=== PATIENT | female | born 1950 | race African-American/Black ===

== ENCOUNTER 2016-08-04 12:14 | Emergency (ER) | payer MEDICAID ==
[~2016-08-04] VITALS: Ht 162.6 cm; Wt 81.6 kg
[~2016-08-04 12:14] MED LIST: AMLODIPINE BESY10 MG ORAL; AUGMENTIN 875-1 EAC1 ORAL; BENADRYL25 MG ORAL; CITALOPRAM HBR40 M1 ORAL; FLOVENT2 PUFF1 INH; HYDROCHLOROTH12.5 M2 ORAL; HYDROCORTISON28.4 G5 RC; IBUPROFEN600 MG ORAL; LORATADINE10 M1 PO; NORCO 10/3251 EA ORAL; RAMIPRIL5 MG ORAL; SAPHRIS5 MG SL; TAMIFLU75 MG ORAL; VENTOLIN HFA18 GM INH; VITAMIN D31000 UNI1 PO; ZOFRAN4 M1 ORAL; ZYRTEC10 MG ORAL
--- NOTE | 2016-08-04 12:36 | Emergency Room Report ---
History of Present Illness General Chief Complaint: Edema Source: Patient Present Illness HPI Patient present with complaints of bilateral leg swelling over the past 7 days Patient's primary physician is out of town and presents to the ER Patient is on hydrochlorothiazide reports taking the same medications same dosage no change Denies any chest pain or shortness of breath denies any back or flank pain along with the swelling in the feet patient also noticed increased pain She also has a history of gout Denies any fall or trauma Allergies: Coded Allergies: SULFAMETHOXAZOLE (Verified Allergy, Unknown, Rash, 05/10/15) and itchiness on foot TRIMETHOPRIM (Verified Allergy, Unknown, Rash, 05/10/15) and itchiness on foot Patient History Past Medical History: see triage record Pertinent Family History: none Now: No Reviewed Nursing Documentation: PMH: Agreed, PSxH: Agreed Nursing Documentation-PMH Past Medical History: No History, Except For Hx Cardiac Problems: No Hx Hypertension: Yes Hx Asthma: Yes Hx COPD: Yes - and Bronchitis Hx Diabetes: No Hx Cancer: No - Vocal cord polyp(s/p polypectomy in 01/2015) Hx Cerebrovascular Accident: No Review of Systems All Other Systems: negative except mentioned in HPI Physical Exam Vital Signs Date Time Temp Pulse Resp B/P Pulse Ox O2 Delivery O2 Flow Rate FiO2 08/04/16 12:20 98.1 79 20 128/71 98 Room Air Sp02 EP Interpretation: reviewed, normal General Appearance: well appearing, no apparent distress Head: normocephalic, atraumatic Eyes: bilateral eye EOMI, bilateral eye PERRL ENT: hearing grossly normal, normal pharynx, TMs + canals normal, uvula midline Neck: full range of motion, supple, no meningismus, no bony tend Respiratory: lungs clear, normal breath sounds, no rhonchi, no respiratory distress, no retraction, no accessory muscle use Cardiovascular #1: normal peripheral pulses, regular rate, rhythm, no gallop, no JVD, no murmur Gastrointestinal: normal bowel sounds, non tender, soft, no mass, no organomegaly, non-distended, no guarding, no hernia, no pulsatile mass, no rebound Genitourinary: no CVA tenderness Musculoskeletal: normal inspection Neurologic: oriented x3, responsive, bulk sugar handler III-XII nml as tested, motor strength/ tone normal, sensory intact Psychiatric: mood/affect normal Skin: other - 2/4 pitting edema bilatlly Lymphatic: normal inspection, no adenopathy Medical Decision Making Diagnostic Impression: Primary Impression: Edema ER Course Patient is a fairly complex patient with multiple differential to consideration including but not limited to cardiac cardiopulmonary and vascular emergencies Patient's baseline blood work is appropriate No obvious signs of BNP elevation Patient will increase her diuretic over the next several days and follow closely with her primary physician Labs Test 08/04/16 12:40 White Blood Count 5.9 K/UL (4.8-10.8) Red Blood Count 4.25 M/UL (4.20-5.40) Hemoglobin 13.2 G/DL (12.0-16.0) Hematocrit 39.0 % (37.0-47.0) Mean Corpuscular Volume 92 FL (80-99) Mean Corpuscular Hemoglobin 31.1 PG (27.0-31.0) Mean Corpuscular Hemoglobin Concent 33.8 G/DL (32.0-36.0) Red Cell Distribution Width 11.8 % (11.6-14.8) Platelet Count 205 K/UL (150-450) Mean Platelet Volume 7.8 FL (6.5-10.1) Neutrophils (%) (Auto) 57.4 % (45.0-75.0) Lymphocytes (%) (Auto) 30.3 % (20.0-45.0) Monocytes (%) (Auto) 8.6 % (1.0-10.0) Eosinophils (%) (Auto) 2.6 % (0.0-3.0) Basophils (%) (Auto) 1.1 % (0.0-2.0) Sodium Level 142 mEQ/L (135-145) Potassium Level 3.6 mEQ/L (3.4-4.9) Chloride Level 95 mEQ/L (98-107) Carbon Dioxide Level 35 mEQ/L (20-30) Anion Gap 12 (5-15) Blood Urea Nitrogen 13 mg/dL (7-23) Creatinine 0.8 mg/dL (0.5-0.9) Estimat Glomerular Filtration Rate > 60 mL/min (>60) Glucose Level 116 mg/dL (74-106) Calcium Level 9.5 mg/dL (8.6-10.2) Pro-B-Type Natriuretic Peptide 104 pg/mL (0-125) Rhythm Strip Diag. Results EP Interpretation: yes Rate: 77 Rhythm: NSR, no PVC's, no ectopy Last Vital Signs Date Time Temp Pulse Resp B/P Pulse Ox O2 Delivery O2 Flow Rate FiO2 08/04/16 12:20 98.1 79 20 128/71 98 Room Air Status: improved Disposition: HOME, SELF-CARE Condition: Improved Additional Instructions: Patient is provided with the discharge instructions notified to follow up with primary doctor in the next 2-3 days otherwise return to the er with any worsening symptoms. Please note that this report is being documented using Voice Assist technology. This can lead to erroneous entry secondary to incorrect interpretation by the dictating instrument. SVETLANA CRUMP D.O. August 04, 2016 12:36
[2016-08-04 12:45] VITALS: BP 131/75
[2016-08-04 13:08] LABS: BASOPHILS % (AUTO) 1.1 % (0.0-2.0); EOSINOPHILS % (AUTO) 2.6 % (0.0-3.0); LYMPHOCYTES % (AUTO) 30.3 % (20.0-45.0); MEAN CORPUSCULAR HEMOGLOBIN 31.1 PG (27.0-31.0); MEAN CORPUSCULAR HGB CONC 33.8 G/DL (32.0-36.0); MEAN CORPUSCULAR VOLUME 92 FL (80-99); MEAN PLATELET VOLUME 7.8 FL (6.5-10.1); MONOCYTES % (AUTO) 8.6 % (1.0-10.0); NEUTROPHILS % (AUTO) 57.4 % (45.0-75.0); PLATELET COUNT 205 K/UL (150-450); RED BLOOD COUNT 4.25 M/UL (4.20-5.40); RED CELL DISTRIBUTION WIDTH 11.8 % (11.6-14.8); WHITE BLOOD COUNT 5.9 K/UL (4.8-10.8)
[2016-08-04 13:14] VITALS: BP 116/63
[2016-08-04 13:28] LABS: ANION GAP 12 (5-15); CALCIUM 9.5 mg/dL (8.6-10.2); CARBON DIOXIDE 35 mEQ/L (20-30); CHLORIDE 95 mEQ/L (98-107); CREATININE 0.8 mg/dL (0.5-0.9); GLOMERULAR FILTRATION RATE > 60 mL/min (>60); HEMOLYSIS 7; POTASSIUM 3.6 mEQ/L (3.4-4.9); SODIUM 142 mEQ/L (135-145)
[2016-08-04 13:58] VITALS: BP 114/78
== END 2016-08-04 14:01 | disposition home or self-care (01) ==
LOC: EMR 12:45
DX: R60.0 Localized edema (principal); Z88.2 Allergy status to sulfonamides; Z88.8 Allergy status to other drugs, medicaments and biological substances; I10 Essential (primary) hypertension; J45.909 Unspecified asthma, uncomplicated; J44.9 Chronic obstructive pulmonary disease, unspecified
CPT/HCPCS: 36415; 80048; 83880; 85025; 99283

== ENCOUNTER 2017-08-06 11:13 | Emergency (ER) | payer MEDICARE, MEDICAID ==
[~2017-08-06] VITALS: Ht 162.6 cm; Wt 78.0 kg
[2017-08-06 11:34] VITALS: BP 148/92
[2017-08-06] MEDS ORDERED: Morphine Sulfate 4mg/ml Inj IVP ONE (11:45)
[2017-08-06] MEDS ORDERED: Ketorolac 30mg Inj IV ONE (11:45)
[2017-08-06 12:50] LABS: BASOPHILS % (AUTO) 0.9 % (0.0-2.0); EOSINOPHILS % (AUTO) 1.6 % (0.0-3.0); HEMATOCRIT 42.5 % (37.0-47.0); HEMOGLOBIN 13.9 G/DL (12.0-16.0); LYMPHOCYTES % (AUTO) 31.4 % (20.0-45.0); MEAN CORPUSCULAR VOLUME 92 FL (80-99); MONOCYTES % (AUTO) 6.3 % (1.0-10.0); NEUTROPHILS % (AUTO) 59.8 % (45.0-75.0); PLATELET COUNT 213 K/UL (150-450); RED BLOOD COUNT 4.63 M/UL (4.20-5.40); RED CELL DISTRIBUTION WIDTH 11.7 % (11.6-14.8); WHITE BLOOD COUNT 7.5 K/UL (4.8-10.8)
--- NOTE | 2017-08-06 13:14 | Diagnostic Imaging Report ---
Indication: Pain Technique: XRAY Knee 3v LT Comparison: None Findings: There is no evidence of acute fracture or dislocation. There is moderate to severe degenerative change of the knee with joint space narrowing, subchondral sclerosis and tricompartmental osteophyte formation. Within the femoral shaft there is a lesion with chondroid calcifications and some expansion of the overlying cortex. This may represent a chondroma. No radiopaque foreign body seen IMPRESSION: No evidence of acute fracture or dislocation. Moderate to severe degenerative change of the knee. Expansile lesion in the distal fibula measuring approximately 6 cm in length with chondroid calcifications. This may represent an enchondroma versus low grade chondrosarcoma. Size of the lesion, age of the patient and presence of pain would favor chondrosarcoma. Comparison with prior studies, if available, is recommended to assess for interval change. This was discussed with Dr. Salazar
--- NOTE | 2017-08-06 13:18 | Emergency Room Report ---
History of Present Illness General Chief Complaint: General Complaint Source: Patient Present Illness HPI Patient presents with left knee pain. She also swelling there. Been going on for quite a while but the pain is increased recently. She doesn't have any pain medication ordered by her doctors recently. She does not know whether she has gout or not. She denies any recent trauma. Pain is 10/10 at this time radiates somewhat up into the upper leg. She denies any fevers or chills. There's no rash or redness. No chest pain, palpitations, nausea, vomiting, diarrhea, dysuria, abdominal pain , shortness of breath, depression, visual changes, headache. H/O asthma and COPD. Allergies: Coded Allergies: SULFAMETHOXAZOLE (Verified Allergy, Unknown, Rash, 05/10/15) and itchiness on foot TRIMETHOPRIM (Verified Allergy, Unknown, Rash, 05/10/15) and itchiness on foot Patient History Past Medical History: see triage record Social History: Reports: alcohol use; Denies: smoking - former Social History Narrative at home Now: No Reviewed Nursing Documentation: PMH: Agreed; PSxH: Agreed Nursing Documentation-PMH Past Medical History: No History, Except For Hx Cardiac Problems: No Hx Hypertension: Yes Hx Asthma: Yes Hx COPD: Yes - and Bronchitis Hx Diabetes: No Hx Cancer: No - Vocal cord polyp(s/p polypectomy in 01/2015) Hx Cerebrovascular Accident: No Review of Systems All Other Systems: negative except mentioned in HPI Physical Exam Vital Signs Date Time Temp Pulse Resp B/P (MAP) Pulse Ox O2 Delivery O2 Flow Rate FiO2 08/06/17 11:24 98.2 76 17 156/94 96 98.2 Sp02 EP Interpretation: reviewed, normal General Appearance: well appearing, no apparent distress, GCS 15 Head: normocephalic, atraumatic Eyes: bilateral eye normal inspection, bilateral eye PERRL ENT: hearing grossly normal, normal voice, moist mucus membranes Neck: full range of motion, supple Respiratory: normal breath sounds, no respiratory distress, speaking full sentences Cardiovascular #1: regular rate, rhythm Cardiovascular #2: 2+ radial (L), 2+ dorsalis pedis (L) Gastrointestinal: normal inspection, normal bowel sounds, non tender Musculoskeletal: back normal, digits/nails normal, no calf tenderness, swelling - L knee with effusion. Ligaments stable, other - walks with cane Neurologic: alert, oriented x3, motor strength/tone normal, sensory intact, speech normal Psychiatric: mood/affect normal Skin: no rash, other - no erythema or warmth of L knee Medical Decision Making Diagnostic Impression: Primary Impression: Osteoarthritis Qualified Codes: M17.12 - Unilateral primary osteoarthritis, left knee Additional Impression: Osteochondroma ER Course Patient presents with left knee swelling and pain. Differential includes exacerbation of osteotome myelitis, doubt, pseudogout amongst others. She denies any trauma therefore fractures less likely however x-rays are indicated. In addition to that laboratory is needed at this time - mainly, need to exclude gout and renal failure. The patient will treated with Toradol and morphine. She'll also have an Nash wrap placed. Labs with normal WBC and renal function. Uric acid normal. Xrays with severe DJD. Also osteochondroma (vs osteosarcoma per radiologist). Effusion. Nash placed by tech. Position and tension excellent. Distal neurovasc normal as checked by me. Improved with treatment. Ambulates with cane with greater ease. Discussed x-ray findings. Cures checked - percocet 30 filled 4/. Patient stable for outpatient observation and treatment. Laboratory Tests Test 08/06/17 12:10 White Blood Count 7.5 K/UL (4.8-10.8) Red Blood Count 4.63 M/UL (4.20-5.40) Hemoglobin 13.9 G/DL (12.0-16.0) Hematocrit 42.5 % (37.0-47.0) Mean Corpuscular Volume 92 FL (80-99) Mean Corpuscular Hemoglobin 30.0 PG (27.0-31.0) Mean Corpuscular Hemoglobin Concent 32.7 G/DL (32.0-36.0) Red Cell Distribution Width 11.7 % (11.6-14.8) Platelet Count 213 K/UL (150-450) Mean Platelet Volume 8.8 FL (6.5-10.1) Neutrophils (%) (Auto) 59.8 % (45.0-75.0) Lymphocytes (%) (Auto) 31.4 % (20.0-45.0) Monocytes (%) (Auto) 6.3 % (1.0-10.0) Eosinophils (%) (Auto) 1.6 % (0.0-3.0) Basophils (%) (Auto) 0.9 % (0.0-2.0) Erythrocyte Sedimentation Rate 12 MM/HR (0-30) Sodium Level 142 MMOL/L (136-145) Potassium Level 4.0 MMOL/L (3.5-5.1) Chloride Level 103 MMOL/L (98-107) Carbon Dioxide Level 35 MMOL/L (21-32) H Anion Gap 4 mmol/L (5-15) L Blood Urea Nitrogen 18 mg/dL (7-18) Creatinine 0.7 MG/DL (0.55-1.30) Estimate Glomerular Filtration Rate > 60 mL/min (>60) Glucose Level 92 MG/DL (74-106) Uric Acid 6.0 MG/DL (2.6-7.2) Calcium Level 8.7 MG/DL (8.5-10.1) Total Bilirubin 0.4 MG/DL (0.2-1.0) Aspartate Amino Transferase (AST) 19 U/L (15-37) Alanine Aminotransferase (ALT) 31 U/L (12-78) Alkaline Phosphatase 82 U/L (46-116) Total Creatine Kinase 76 U/L (26-308) Total Protein 7.9 G/DL (6.4-8.2) Albumin 4.3 G/DL (3.4-5.0) Globulin 3.6 g/dL Albumin/Globulin Ratio 1.2 (1.0-2.7) Other X-Ray Diagnostic Results Other X-Ray Diagnostic Results : # of Views/Limited Vs Complete: 3 View Indication: Pain EP Interpretation: Yes Interpretation: no dislocation, no fractures, other - djd and ostoechondroma vs osteosarcoma Last Vital Signs Date Time Temp Pulse Resp B/P (MAP) Pulse Ox O2 Delivery O2 Flow Rate FiO2 08/06/17 12:36 98.2 08/06/17 11:34 74 18 148/92 97 Status: improved Disposition: HOME, SELF-CARE Condition: Improved Scripts Ibuprofen* (MOTRIN*) 600 Mg Tablet 600 MG ORAL Q6H PRN for For Pain, #20 TAB Prov: Surendra Salazar M.D. 08/06/17 Hydrocodone Bit/Acetaminophen 5-325* (NORCO 5-325*) 1 Each Tablet 1 TAB ORAL Q6H PRN for For Pain, #16 TAB 0 Refills Prov: Surendra Salazar M.D. 08/06/17 Referrals: NON PHYSICIAN (PCP) Surendra Salazar M.D. August 06, 2017 13:18
[2017-08-06 13:20] LABS: ANION GAP 4 mmol/L (5-15); BLOOD UREA NITROGEN 18 mg/dL (7-18); CALCIUM 8.7 MG/DL (8.5-10.1); CARBON DIOXIDE 35 MMOL/L (21-32); CHLORIDE 103 MMOL/L (98-107); CREATININE 0.7 MG/DL (0.55-1.30); SODIUM 142 MMOL/L (136-145)
[2017-08-06 13:25] LABS: ALANINE AMINOTRANSFERASE 31 U/L (12-78); ALBUMIN 4.3 G/DL (3.4-5.0); ALBUMIN/GLOBULIN RATIO 1.2 (1.0-2.7); ALKALINE PHOSPHATASE 82 U/L (46-116); ASPARTATE AMINO TRANSFERASE 19 U/L (15-37); BILIRUBIN,TOTAL 0.4 MG/DL (0.2-1.0); CREATINE KINASE 76 U/L (26-308)
[2017-08-06] MEDS ORDERED: IBUPROFEN600 MG ORAL (13:56)
[2017-08-06] MEDS ORDERED: NORCO 5-325 TA1 EACH ORAL (13:56)
[2017-08-06] MEDS ORDERED: SAPHRIS5 MG SL (14:01)
[2017-08-06] MEDS ORDERED: OXYCODONE-ACET1 EAC5 ORAL (14:01)
[2017-08-06 14:03] VITALS: BP 145/88
== END 2017-08-06 14:06 | disposition home or self-care (01) ==
LOC: EMR 11:37
DX: M17.12 Unilateral primary osteoarthritis, left knee (principal); D16.9 Benign neoplasm of bone and articular cartilage, unspecified; I10 Essential (primary) hypertension; J45.909 Unspecified asthma, uncomplicated; J44.9 Chronic obstructive pulmonary disease, unspecified; Z88.1 Allergy status to other antibiotic agents; Z88.2 Allergy status to sulfonamides
CPT/HCPCS: 36415; 73562; 80053; 82550; 84550; 85025; 85651; 96374; 96375; 99284; J1885; J2270; J2405

== ENCOUNTER 2017-10-11 10:22 | Emergency (ER) | payer MEDICARE, MEDICAID ==
[~2017-10-11] VITALS: Ht 162.6 cm; Wt 81.6 kg
[~2017-10-11 10:22] MED LIST changes: +NORCO 5-325 TA1 EACH ORAL; +OXYCODONE-ACET1 EAC5 ORAL
[2017-10-11] MEDS ORDERED: oxyCODONE HCL/Acetaminophen 5/325mg ORAL ONE (11:15)
[2017-10-11] MEDS ORDERED: Ketorolac 30mg Inj IV ONE (11:15)
[2017-10-11 11:42] VITALS: BP 144/82
[2017-10-11 12:06] LABS: BASOPHILS % (AUTO) 1.2 % (0.0-2.0); EOSINOPHILS % (AUTO) 1.1 % (0.0-3.0); HEMATOCRIT 41.3 % (37.0-47.0); HEMOGLOBIN 13.7 G/DL (12.0-16.0); LYMPHOCYTES % (AUTO) 37.4 % (20.0-45.0); MEAN CORPUSCULAR VOLUME 91 FL (80-99); MONOCYTES % (AUTO) 7.1 % (1.0-10.0); NEUTROPHILS % (AUTO) 53.3 % (45.0-75.0); PLATELET COUNT 212 K/UL (150-450); RED BLOOD COUNT 4.55 M/UL (4.20-5.40); RED CELL DISTRIBUTION WIDTH 10.9 % (11.6-14.8); WHITE BLOOD COUNT 7.1 K/UL (4.8-10.8)
[2017-10-11 12:06] LABS: APPEARANCE,URINE CLEAR; BILIRUBIN, URINE NEGATIVE (NEGATIVE); COLOR,URINE PALE YELLOW; GLUCOSE, URINE (UA) NEGATIVE (NEGATIVE); KETONES,URINE NEGATIVE (NEGATIVE); LEUKOCYTE ESTERASE ,URINE NEGATIVE (NEGATIVE); NITRITE,URINE NEGATIVE (NEGATIVE); PH,URINE 7 (4.5-8.0); PROTEIN,URINE NEGATIVE (NEGATIVE); UROBILINOGEN,URINE NORMAL MG/DL (0.0-1.0)
[2017-10-11 12:21] LABS: ANION GAP 7 mmol/L (5-15); BLOOD UREA NITROGEN 18 mg/dL (7-18); CALCIUM 8.8 MG/DL (8.5-10.1); CARBON DIOXIDE 32 MMOL/L (21-32); CHLORIDE 101 MMOL/L (98-107); CREATININE 0.7 MG/DL (0.55-1.30); POTASSIUM 3.6 MMOL/L (3.5-5.1); SODIUM 140 MMOL/L (136-145)
[2017-10-11 12:23] LABS: ALANINE AMINOTRANSFERASE 33 U/L (12-78); ALBUMIN/GLOBULIN RATIO 1.2 (1.0-2.7); ALKALINE PHOSPHATASE 89 U/L (46-116); ASPARTATE AMINO TRANSFERASE 17 U/L (15-37); BILIRUBIN,TOTAL 0.3 MG/DL (0.2-1.0)
--- NOTE | 2017-10-11 13:31 | Emergency Room Report ---
History of Present Illness General Chief Complaint: Lower Extremity Injury Source: Patient Present Illness HPI Patient presents with increased pain in L knee. Chronic problem which has worsened. Now out of [place] and "dropped" by prior chronic pain MD. Appointment 10/25 with new pain specialist. Denies fever. There is swelling. No rash. Also has some lower back pain. No dysuria. Pain in knee rated 10/10 , worse with ambulation and movement. No recent trauma. Prior Xray of knee: No evidence of acute fracture or dislocation. Moderate to severe degenerative change of the knee. Expansile lesion in the distal fibula measuring approximately 6 cm in length with chondroid calcifications. This may represent an enchondroma versus low grade chondrosarcoma. Size of the lesion, age of the patient and presence of pain would favor chondrosarcoma. Comparison with prior studies, if available, is recommended to assess for interval change. Anxious. No NVD, chest pain, cough, dyspnea. Allergies: Coded Allergies: SULFAMETHOXAZOLE (Verified Allergy, Unknown, Rash, 05/10/15) and itchiness on foot TRIMETHOPRIM (Verified Allergy, Unknown, Rash, 05/10/15) and itchiness on foot Patient History Past Medical History: see triage record Social History: Reports: smoking Social History Narrative ambulatory Last Menstrual Period: NA Reviewed Nursing Documentation: PMH: Agreed; PSxH: Agreed Nursing Documentation-PMH Past Medical History: No History, Except For Hx Cardiac Problems: No Hx Hypertension: Yes - Degenerative arthritis Hx Asthma: Yes Hx COPD: Yes - and Bronchitis Hx Diabetes: No Hx Cancer: No - Vocal cord polyp(s/p polypectomy in 01/2015) Hx Cerebrovascular Accident: No Review of Systems All Other Systems: negative except mentioned in HPI Physical Exam Vital Signs Date Time Temp Pulse Resp B/P (MAP) Pulse Ox O2 Delivery O2 Flow Rate FiO2 10/11/17 10:25 98.5 68 20 153/91 96 Room Air 98.4 General Appearance: well appearing, no apparent distress Head: normocephalic, atraumatic Eyes: bilateral eye normal inspection, bilateral eye PERRL ENT: hearing grossly normal, normal voice Neck: full range of motion, supple Respiratory: no respiratory distress, speaking full sentences Cardiovascular #1: normal peripheral pulses, regular rate, rhythm Cardiovascular #2: 2+ radial (L), 2+ dorsalis pedis (L) Gastrointestinal: normal inspection, normal bowel sounds, non tender Musculoskeletal: back normal - with min muscle tenderness, digits/nails normal , no calf tenderness, swelling - L knee without effusion, ligaments stable Neurologic: alert, oriented x3, normal gait, grossly normal Psychiatric: mood/affect normal Skin: no rash Medical Decision Making Diagnostic Impression: Primary Impression: Osteoarthritis Qualified Codes: M17.12 - Unilateral primary osteoarthritis, left knee Additional Impressions: Chronic pain Qualified Codes: G89.29 - Other chronic pain Osteochondroma ER Course Patient presents with L knee pain worsened without trauma. DDx; gout, osteoarthritis, opiate dependence, septic joint, pseudogout amongst others. No evidence of PE. Evaluation with labs. Prior x-rays reviewed. Patient treated for pain. Labs with normal WBC, CMP and uric acid. ESR normal. Patient improved. Pressure to cover with analgesics until 10/25. I advised PT and consideration for knee replacement. Discussed prior x-ray results and again stressed follow up. Patient stable for outpatient observation and treatment. Laboratory Tests Test 10/11/17 11:33 10/11/17 11:42 Urine Color Pale yellow Urine Appearance Clear Urine pH 7 (4.5-8.0) Urine Specific [place] 1.010 (1.005-1.035) Urine Protein Negative (NEGATIVE) Urine Glucose (UA) Negative (NEGATIVE) Urine Ketones Negative (NEGATIVE) Urine Occult Blood Negative (NEGATIVE) Urine Nitrite Negative (NEGATIVE) Urine Bilirubin Negative (NEGATIVE) Urine Urobilinogen Normal MG/DL (0.0-1.0) Urine Leukocyte Esterase Negative (NEGATIVE) White Blood Count 7.1 K/UL (4.8-10.8) Red Blood Count 4.55 M/UL (4.20-5.40) Hemoglobin 13.7 G/DL (12.0-16.0) Hematocrit 41.3 % (37.0-47.0) Mean Corpuscular Volume 91 FL (80-99) Mean Corpuscular Hemoglobin 30.0 PG (27.0-31.0) Mean Corpuscular Hemoglobin Concent 33.1 G/DL (32.0-36.0) Red Cell Distribution Width 10.9 % (11.6-14.8) L Platelet Count 212 K/UL (150-450) Mean Platelet Volume 8.4 FL (6.5-10.1) Neutrophils (%) (Auto) 53.3 % (45.0-75.0) Lymphocytes (%) (Auto) 37.4 % (20.0-45.0) Monocytes (%) (Auto) 7.1 % (1.0-10.0) Eosinophils (%) (Auto) 1.1 % (0.0-3.0) Basophils (%) (Auto) 1.2 % (0.0-2.0) Erythrocyte Sedimentation Rate 14 MM/HR (0-30) Sodium Level 140 MMOL/L (136-145) Potassium Level 3.6 MMOL/L (3.5-5.1) Chloride Level 101 MMOL/L (98-107) Carbon Dioxide Level 32 MMOL/L (21-32) Anion Gap 7 mmol/L (5-15) Blood Urea Nitrogen 18 mg/dL (7-18) Creatinine 0.7 MG/DL (0.55-1.30) Estimate Glomerular Filtration Rate > 60 mL/min (>60) Glucose Level 99 MG/DL (74-106) Uric Acid 5.4 MG/DL (2.6-7.2) Calcium Level 8.8 MG/DL (8.5-10.1) Total Bilirubin 0.3 MG/DL (0.2-1.0) Aspartate Amino Transferase (AST) 17 U/L (15-37) Alanine Aminotransferase (ALT) 33 U/L (12-78) Alkaline Phosphatase 89 U/L (46-116) Total Protein 7.3 G/DL (6.4-8.2) Albumin 4.0 G/DL (3.4-5.0) Globulin 3.3 g/dL Albumin/Globulin Ratio 1.2 (1.0-2.7) Last Vital Signs Date Time Temp Pulse Resp B/P (MAP) Pulse Ox O2 Delivery O2 Flow Rate FiO2 10/11/17 13:52 98.5 88 18 141/89 97 Room Air 98.5 Status: improved Disposition: HOME, SELF-CARE Condition: Improved Scripts Ibuprofen* (MOTRIN*) 600 Mg Tablet 600 MG ORAL Q6H PRN for For Pain, #20 TAB Prov: Surendra Salazar M.D. 10/11/17 Hydrocodone Bit/Acetaminophen 10-325* (NORCO 10-325*) 1 Each Tablet 1 TAB ORAL Q6H PRN for For Pain, #14 TAB 0 Refills PRN PAIN Prov: Surendra Salazar M.D. 10/11/17 Referrals: NOT CHOSEN CECELIA/,REFERRING (PCP) Surendra Salazar M.D. Oct 11, 2017 13:31
[2017-10-11] MEDS ORDERED: IBUPROFEN600 MG ORAL (13:38)
[2017-10-11] MEDS ORDERED: NORCO 10-325 T1 EACH ORAL (13:38)
[2017-10-11 13:51] VITALS: BP 141/89
[2017-10-11 13:52] VITALS: BP 141/89
== END 2017-10-11 13:53 | disposition home or self-care (01) ==
LOC: EMR 10:37
DX: M17.12 Unilateral primary osteoarthritis, left knee (principal); G89.29 Other chronic pain; D16.9 Benign neoplasm of bone and articular cartilage, unspecified; Z88.2 Allergy status to sulfonamides; J44.9 Chronic obstructive pulmonary disease, unspecified; I10 Essential (primary) hypertension
CPT/HCPCS: 36415; 80053; 81003; 84550; 85025; 85651; 96374; 99284; J1885

== ENCOUNTER 2018-05-09 10:28 | Inpatient (IN) | payer MEDICARE, MEDICAID ==
[~2018-05-09] VITALS: Ht 162.6 cm; Wt 86.2 kg
[2018-05-09] VITALS (7 sets, daily range): BP systolic 115–144; BP diastolic 64–98
[~2018-05-09 10:28] MED LIST changes: +NORCO 10-325 T1 EACH ORAL
--- NOTE | 2018-05-09 11:04 | NUR ---
ED Nurse Note: Patient walked in to ER c/o 01/02 Rt lower chest pain which started yesterday. pt aao x 4, skin clean and intact and able to ambulate with stable gait.
[2018-05-09 11:06] LABS: BASOPHILS % (AUTO) 0.8 % (0.0-2.0); EOSINOPHILS % (AUTO) 0.4 % (0.0-3.0); HEMATOCRIT 42.7 % (37.0-47.0); HEMOGLOBIN 14.5 G/DL (12.0-16.0); LYMPHOCYTES % (AUTO) 28.4 % (20.0-45.0); MEAN CORPUSCULAR VOLUME 92 FL (80-99); MONOCYTES % (AUTO) 5.3 % (1.0-10.0); NEUTROPHILS % (AUTO) 65.2 % (45.0-75.0); PLATELET COUNT 253 K/UL (150-450); RED BLOOD COUNT 4.66 M/UL (4.20-5.40); RED CELL DISTRIBUTION WIDTH 11.7 % (11.6-14.8); WHITE BLOOD COUNT 10.5 K/UL (4.8-10.8)
[2018-05-09 11:19] LABS: ANION GAP 12 mmol/L (5-15); BLOOD UREA NITROGEN 14 mg/dL (7-18); CALCIUM 8.6 MG/DL (8.5-10.1); CARBON DIOXIDE 28 MMOL/L (21-32); CHLORIDE 99 MMOL/L (98-107); CREATININE 0.7 MG/DL (0.55-1.30); POTASSIUM 3.4 MMOL/L (3.5-5.1); SODIUM 139 MMOL/L (136-145)
[2018-05-09 11:29] LABS: ALANINE AMINOTRANSFERASE 36 U/L (12-78); ALBUMIN 4.3 G/DL (3.4-5.0); ALBUMIN/GLOBULIN RATIO 1.2 (1.0-2.7); ALKALINE PHOSPHATASE 93 U/L (46-116); ASPARTATE AMINO TRANSFERASE 22 U/L (15-37); BILIRUBIN,TOTAL 0.5 MG/DL (0.2-1.0)
[2018-05-09] MEDS: Nitroglycerin Subl 0.4mg tab SL PRN ×3 (11:42→12:55)
--- NOTE | 2018-05-09 11:50 | Emergency Room Report ---
History of Present Illness General Chief Complaint: General Complaint Source: Patient, Medical Record Present Illness HPI 68-year-old female with a history of hypertion, CHF, family history of mom with CAD presents with right-sided inframammary anterior chest pain, nonradiating, moderate to severe, sharp, worse with deep breathing, thinks she may have had a problem after she went to [email or web address] class but can't recall an injury. Denies hemoptysis, fever, vomiting, hemoptysis, abdominal pain, any other symptoms. Allergies: Coded Allergies: SULFAMETHOXAZOLE (Verified Allergy, Unknown, Rash, 05/10/15) and itchiness on foot TRIMETHOPRIM (Verified Allergy, Unknown, Rash, 05/10/15) and itchiness on foot Patient History Past Medical History: see triage record Reviewed Nursing Documentation: PMH: Agreed; PSxH: Agreed Nursing Documentation-PMH Past Medical History: No History, Except For Hx Cardiac Problems: No Hx Hypertension: Yes - Degenerative arthritis Hx Asthma: Yes Hx COPD: Yes - Bronchitis Hx Diabetes: No Hx Cancer: No - Vocal cord polyp(s/p polypectomy in 01/2015) Hx Cerebrovascular Accident: No Review of Systems All Other Systems: negative except mentioned in HPI Physical Exam Vital Signs Date Time Temp Pulse Resp B/P (MAP) Pulse Ox O2 Delivery O2 Flow Rate FiO2 05/09/18 10:37 98.4 82 16 136/90 95 Room Air Sp02 EP Interpretation: reviewed, normal General Appearance: no apparent distress, alert, non-toxic Head: normocephalic Eyes: bilateral eye normal inspection, bilateral eye PERRL, bilateral eye EOMI ENT: normal ENT inspection, hearing grossly normal, normal pharynx, no angioedema, normal voice, moist mucus membranes Neck: normal inspection, full range of motion, supple, supple/symm/no masses Respiratory: chest non-tender, lungs clear, normal breath sounds, chest symmetrical, palpation of chest normal Cardiovascular #1: normal peripheral pulses, regular rate, rhythm, no rub, edema - 1+B/L LE Cardiovascular #2: 2+ radial (R), 2+ radial (L), 2+ dorsalis pedis (R), 2+ dorsalis pedis (L) Gastrointestinal: normal inspection, non tender, soft, no mass, no guarding, no rebound Rectal: deferred Genitourinary: normal inspection, no CVA tenderness Musculoskeletal: back normal, gait/station normal, normal range of motion, non- tender, no calf tenderness, Warren's Sign negative Neurologic: alert, responsive, client relations specialist III-XII nml as tested, motor strength/tone normal, sensory intact, speech normal Psychiatric: judgement/insight normal, memory normal, mood/affect normal Skin: normal color, no rash, warm/dry, normal turgor Lymphatic: no adenopathy Medical Decision Making Diagnostic Impression: Primary Impression: Chest pain ER Course patient with atypical chest pain more right sided, but d-dimer negative, and troponin elevated, ekg with no ischemic changes, but diffuse twave flattening. will give asa, ntg, flexeril, admit for r/o ACS. EKG Diagnostic Results EKG Time: 10:50 EP Interpretation: no stemi Rate: normal Rhythm: NSR ST Segments: no acute changes ASA given to the pt in ED: Yes Rhythm Strip Diag. Results Rhythm Strip Time: 11:47 EP Interpretation: yes Rate: 80 Rhythm: NSR, no PVC's, no ectopy Chest X-Ray Diagnostic Results Chest X-Ray Diagnostic Results : Chest X-Ray Ordered: Yes # of Views/Limited/Complete: 1 View Indication: Chest Pain EP Interpretation: Yes Interpretation: no effusion, no pneumothorax, no acute cardiopulmonary disease Impression: No acute disease Electronically Signed by: Gloria Laird MD Last Vital Signs Date Time Temp Pulse Resp B/P (MAP) Pulse Ox O2 Delivery O2 Flow Rate FiO2 05/09/18 11:00 98.4 72 12 144/85 100 Room Air Disposition: ADMITTED INPATIENT Condition: Stable Referrals: NON PHYSICIAN (PCP) GLORIA LARID M.D May 09, 2018 11:50
--- NOTE | 2018-05-09 12:55 | NUR ---
ED Nurse Note: Second dose of Nitroglycerin 0.4mg was given. pt reported pain level 7/10
--- NOTE | 2018-05-09 13:38 | Diagnostic Imaging Report ---
Indication: Chest pain Technique: One view of the chest Comparison: 05/10/2015 Findings: The heart is enlarged. The lungs and pleural spaces are clear. The aorta is tortuous. Upper mediastinum is unremarkable. There are degenerative thoracic spondylosis changes incidentally noted Impression: Negative
[2018-05-09] MEDS ORDERED: LORazepam 1mg tab ORAL ONE (14:15)
--- NOTE | 2018-05-09 15:30 | NUR ---
ED Nurse Note: Patient wishes to go home instead of being admitted as stating "Hospital scares me. I don't want to stay. I can take care of myself at home." made aware.
--- NOTE | 2018-05-09 16:05 | NUR ---
ED Nurse Note: Patient is talking to the patient about risk for leaving when there are evidences of heart damages.
--- NOTE | 2018-05-09 16:07 | NUR ---
ED Nurse Note: Patient agreed with staying after talking to ERMD.
[2018-05-09] MEDS ORDERED: Morphine Sulfate 4mg/ml Inj (IV USE ONLY) IVP ONE (16:15)
[2018-05-09] MEDS ORDERED: LORATADINE10 M2 PO (17:38)
[2018-05-09] MEDS ORDERED: FLOVENT HFA10.6 GM INH (17:38)
[2018-05-09] MEDS ORDERED: VITAMIN D1000 UNI1 ORAL (17:40)
[2018-05-09] MEDS ORDERED: COLCRYS0.6 M1 PO (17:40)
[2018-05-09] MEDS ORDERED: Nitroglycerin Subl 0.4mg tab SL PRN (18:15)
[2018-05-09] MEDS ORDERED: Miralax 17gm pkt ORAL PRN (18:15)
[2018-05-09] MEDS ORDERED: Albuterol/Ipratropium 3ml neb HHN PRN (18:15)
[2018-05-09] MEDS ORDERED: Enalaprilat 2.5mg/2ml Inj IV PRN (18:15)
[2018-05-09] MEDS ORDERED: dilTIAZem HCl 25mg/5ml Inj IV PRN (18:15)
[2018-05-09] MEDS ORDERED: Morphine Sulfate 2mg/ml Inj(IV/IM USE ONLY) IVP PRN (18:15)
--- NOTE | 2018-05-09 19:24 | NUR ---
HAND-OFF: Report given to FRANKIE Goins. We are waiting for room to be available.
--- NOTE | 2018-05-09 19:55 | NUR ---
ED Nurse Note: pt was complaining of 9/10 pain on right lower chest, prn meds given. pt able to tolerate well. will continue to monitor.
--- NOTE | 2018-05-09 20:25 | NUR ---
ED Nurse Note: pt was reassessed for pain and pt stated that the pain lessen to five and she can tolerate it now. will continue to monitor.
--- NOTE | 2018-05-09 21:35 | NUR ---
ED Nurse Note: pt was admitted to hospital. report given to vitaly zhang.
--- NOTE | 2018-05-09 21:50 | NUR ---
NURSE NOTES: Received Pt from ER Briseida/RN. Pt C/o right side of chest pain which Pt states that it may caused by physical exercises and left knee pain 09/02 with left knee has swollen 2 + for 2 weeks. Pt is A/O x 4, Room air, IV at right A/C 20g/HL. Regular diet, full code, Pt is able to ambulating with her own cane, Voiding well , skin intact. Bed at lowest position, call light within reach.
[2018-05-09] MEDS: Heparin 5000 units/ml inj SUBQ SCH (23:11)
[2018-05-09] MEDS: Ketorolac 30mg Inj IV PRN (23:12)
--- NOTE | 2018-05-10 | NUR ---
NURSE NOTES: Pt was sleeping comfortably at this time, no c/o any pain. Will continue to monitor.
--- NOTE | 2018-05-10 06:09 | NUR ---
NURSE NOTES: Pt's monitor worker shows pt has 1st degree AV block. But Pt doesn't have any pain or discomfort at this time, will continue to monitor.
[2018-05-10 06:17] LABS: BASOPHILS % (AUTO) 0.8 % (0.0-2.0); EOSINOPHILS % (AUTO) 2.1 % (0.0-3.0); HEMATOCRIT 38.6 % (37.0-47.0); HEMOGLOBIN 13.1 G/DL (12.0-16.0); MEAN CORPUSCULAR VOLUME 93 FL (80-99); MONOCYTES % (AUTO) 6.3 % (1.0-10.0); NEUTROPHILS % (AUTO) 54.7 % (45.0-75.0); PLATELET COUNT 204 K/UL (150-450); RED BLOOD COUNT 4.15 M/UL (4.20-5.40); RED CELL DISTRIBUTION WIDTH 12.1 % (11.6-14.8); WHITE BLOOD COUNT 6.5 K/UL (4.8-10.8)
[2018-05-10 06:59] LABS: CHOLESTEROL 206 MG/DL (< 200); HDL CHOLESTEROL 78 MG/DL (40-60); TRIGLYCERIDES 139 MG/DL (30-150)
--- NOTE | 2018-05-10 07:25 | NUR ---
HAND-OFF: Report given to Elias/FRANKIE.
--- NOTE | 2018-05-10 07:30 | NUR ---
NURSE NOTES: RECEIVED PATIENT FROM FRANKIE ROSAS.ALERT ORIENTED X 4 WITH 9/10 PAIN ON HER RIGHT LATERAL CHEST.WILL MEDICATE PATIENT.SR 1ST DEGREE ON THE MONITOR.BP 151/92.
[2018-05-10] MEDS: Heparin 5000 units/ml inj SUBQ SCH ×2 (08:22→20:26)
[2018-05-10] MEDS: Ketorolac 30mg Inj IV PRN ×3 (08:25→20:22)
[2018-05-10] MEDS ORDERED: Aspirin Baby 81mg ORAL SCH (09:00)
--- NOTE | 2018-05-10 10:46 | Consultation ---
History of Present Illness General Date patient seen: May 10, 2018 Chief Complaint: General Complaint Present Illness HPI 68-year-old female with a history of hypertension, CHF, presented to ER with CC of chest pain, nonradiating, moderate to severe, sharp, worse with deep breathing, It started after a Pilates class but can't recall an injury. She was increased troponin therefore she is admitted to cardiac unit. Currently she is c/o RUQ abdominal pain. No nausea/ vomiting/ no other GI symptoms. Allergies: Coded Allergies: SULFAMETHOXAZOLE (Verified Allergy, Unknown, Rash, 05/10/15) and itchiness on foot TRIMETHOPRIM (Verified Allergy, Unknown, Rash, 05/10/15) and itchiness on foot Medication History Scheduled Albuterol Sulfate (Ventolin Hfa), 2 PUFFS INH QID, (Reported) Amlodipine Besylate* (Amlodipine Besylate*), 10 MG ORAL DAILY, (Reported) Asenapine Maleate (Saphris), 5 MG SL QHS, (Reported) Cetirizine Hcl* (Zyrtec*), 10 MG ORAL DAILY Cholecalciferol (Vitamin D3)* (Vitamin D*), 1,000 UNITS ORAL TWICE A DAY, ( Reported) Citalopram Hydrobromide* (Citalopram Hbr*), 40 MG ORAL QHS, (Reported) Colchicine (Colcrys), 0.6 MG PO DAILY, (Reported) Fluticasone Propionate (Flovent Hfa), 1 PUFF INH BID, (Reported) Hydrochlorothiazide* (Hydrochlorothiazide*), 12.5 MG ORAL DAILY, (Reported) Loratadine (Loratadine), 10 MG PO DAILY, (Reported) Ramipril* (Ramipril*), 5 MG ORAL DAILY, (Reported) Scheduled PRN Oxycodone Hcl/Acetaminophen 10-325* (Oxycodone-Acetaminophen 10-325*), 1 TAB ORAL Q8H PRN for Severe Pain (Pain Scale 7-10), (Reported) Discontinued Medications Amoxicillin/Potassium Clav 875-125* (Augmentin 875-125 Tablet*), 1 TAB ORAL TWICE A DAY Discontinued Reason: Therapy completed Diphenhydramine Hcl* (Benadryl*), 25 MG ORAL Q6H PRN for Itching Discontinued Reason: Therapy completed Hydrocodone Bit/Acetaminophen 10-325* ([employer] 10-325*), 1 TAB ORAL Q6H PRN for For Pain Discontinued Reason: Therapy completed Hydrocodone Bit/Acetaminophen 5-325* ([employer] 5-325*), 1 TAB ORAL Q6H PRN for For Pain Discontinued Reason: Therapy completed Hydrocodone/Acetaminophen (Hydrocodon-Acetaminophn 10-325), 1 TAB ORAL Q8H PRN for For Pain, (Reported) Discontinued Reason: Therapy completed Hydrocortisone 1% cream (Hydrocortisone 1% cream), 28.4 GM RC DAILY Discontinued Reason: Therapy completed Ibuprofen* (Motrin*), 600 MG ORAL Q6H PRN for For Pain Discontinued Reason: Therapy completed Ondansetron (Zofran), 4 MG ORAL Q6H PRN for Nausea & Vomiting Discontinued Reason: Therapy completed Oseltamivir Phosphate (Tamiflu), 75 MG ORAL TWICE A DAY Discontinued Reason: Therapy completed Patient History Healthcare decision maker Resuscitation status Full Code Advanced Directive on File Past Medical/Surgical History Past Medical/Surgical History: (1) Depression (2) HTN (hypertension) Review of Systems All Other Systems: negative except mentioned in HPI Physical Exam General Appearance: WD/WN Lines, tubes and drains: peripheral HEENT: normocephalic, atraumatic Neck: non-tender, normal alignment Respiratory/Chest: chest wall non-tender, lungs clear Breasts: no masses Cardiovascular/Chest: normal peripheral pulses Abdomen: normal bowel sounds, non tender Genitourinary/Rectal: normal genital exam Extremities: normal range of motion Last 24 Hour Vital Signs Date Time Temp Pulse Resp B/P (MAP) Pulse Ox O2 Delivery O2 Flow Rate FiO2 05/10/18 08:55 97.9 05/10/18 08:20 69 153/77 05/10/18 08:00 70 05/10/18 08:00 Room Air 05/10/18 04:00 63 05/10/18 04:00 Room Air 05/10/18 00:00 66 05/09/18 23:49 Room Air 05/09/18 22:21 Room Air 05/09/18 21:50 Room Air 05/09/18 21:50 98.3 67 18 135/98 (110) 95 05/09/18 21:35 97.9 76 20 135/64 96 Room Air 05/09/18 21:13 76 20 135/64 96 Room Air 05/09/18 20:25 97.9 05/09/18 18:43 97.9 69 19 117/66 100 Room Air 05/09/18 17:00 97.9 85 19 134/78 100 Room Air 05/09/18 16:42 97.7 05/09/18 15:00 97.7 88 21 128/78 100 Room Air 05/09/18 13:00 98.4 78 19 115/72 100 Room Air 05/09/18 12:55 138/78 05/09/18 11:58 133/88 05/09/18 11:42 118/80 05/09/18 11:00 98.4 72 12 144/85 100 Room Air 05/09/18 11:00 74 12 Room Air 05/09/18 10:37 98.4 82 16 136/90 95 Room Air Intake and Output 05/09/18 05/10/18 19:00 07:00 Intake Total 0 ml 500 ml Balance 0 ml 500 ml Intake Oral 0 ml 500 ml # Voids 1 6 Laboratory Tests Test 05/09/18 10:50 05/09/18 17:18 05/10/18 04:20 White Blood Count 10.5 K/UL (4.8-10.8) 6.5 K/UL (4.8-10.8) Red Blood Count 4.66 M/UL (4.20-5.40) 4.15 M/UL (4.20-5.40) L Hemoglobin 14.5 G/DL (12.0-16.0) 13.1 G/DL (12.0-16.0) Hematocrit 42.7 % (37.0-47.0) 38.6 % (37.0-47.0) Mean Corpuscular Volume 92 FL (80-99) 93 FL (80-99) Mean Corpuscular Hemoglobin 31.2 PG (27.0-31.0) H 31.6 PG (27.0-31.0) H Mean Corpuscular Hemoglobin Concent 34.1 G/DL (32.0-36.0) 33.9 G/DL (32.0-36.0) Red Cell Distribution Width 11.7 % (11.6-14.8) 12.1 % (11.6-14.8) Platelet Count 253 K/UL (150-450) 204 K/UL (150-450) Mean Platelet Volume 7.5 FL (6.5-10.1) 7.4 FL (6.5-10.1) Neutrophils (%) (Auto) 65.2 % (45.0-75.0) 54.7 % (45.0-75.0) Lymphocytes (%) (Auto) 28.4 % (20.0-45.0) 36.0 % (20.0-45.0) Monocytes (%) (Auto) 5.3 % (1.0-10.0) 6.3 % (1.0-10.0) Eosinophils (%) (Auto) 0.4 % (0.0-3.0) 2.1 % (0.0-3.0) Basophils (%) (Auto) 0.8 % (0.0-2.0) 0.8 % (0.0-2.0) Prothrombin Time 10.8 SEC (9.30-11.50) 10.7 SEC (9.30-11.50) Prothromb Time International Ratio 1.0 (0.9-1.1) 1.0 (0.9-1.1) Activated Partial Thromboplast Time 24 SEC (23-33) 26 SEC (23-33) D-Dimer 0.39 mg/L FEU (0.00-0.49) Sodium Level 139 MMOL/L (136-145) Potassium Level 3.4 MMOL/L (3.5-5.1) L Chloride Level 99 MMOL/L (98-107) Carbon Dioxide Level 28 MMOL/L (21-32) Anion Gap 12 mmol/L (5-15) Blood Urea Nitrogen 14 mg/dL (7-18) Creatinine 0.7 MG/DL (0.55-1.30) Estimat Glomerular Filtration Rate > 60 mL/min (>60) Glucose Level 107 MG/DL (74-106) H Calcium Level 8.6 MG/DL (8.5-10.1) Total Bilirubin 0.5 MG/DL (0.2-1.0) Aspartate Amino Transf (AST/SGOT) 22 U/L (15-37) Alanine Aminotransferase (ALT/SGPT) 36 U/L (12-78) Alkaline Phosphatase 93 U/L (46-116) Troponin I 0.147 ng/mL (0.000-0.056) 0.120 ng/mL (0.000-0.056) 0.146 ng/mL (0.000-0.056) Pro-B-Type Natriuretic Peptide 117 pg/mL (0-125) Total Protein 7.8 G/DL (6.4-8.2) Albumin 4.3 G/DL (3.4-5.0) Globulin 3.5 g/dL Albumin/Globulin Ratio 1.2 (1.0-2.7) C-Reactive Protein, Quantitative < 0.4 mg/dL (0.00-0.90) Triglycerides Level 139 MG/DL (30-150) Cholesterol Level 206 MG/DL (< 200) H LDL Cholesterol 104 mg/dL (<100) H HDL Cholesterol 78 MG/DL (40-60) H Cholesterol/HDL Ratio 2.6 (3.3-4.4) L Thyroid Stimulating Hormone (TSH) 1.051 uiU/mL (0.358-3.740) Height (Feet): 5 Height (Inches): 4.00 Weight (Pounds): 190 Medications Current Medications Medications (Trade) Dose Ordered Sig/[place] Route PRN Reason Start Time Stop Time Status Last Admin Dose Admin Acetaminophen (Tylenol) 650 mg Q4H PRN ORAL FEVER 05/09/18 18:15 06/08/18 18:14 Albuterol/ Ipratropium (Albuterol/ Ipratropium) 3 ml Q4H PRN HHN Shortness of Breath 05/09/18 18:15 05/14/18 18:14 Amlodipine Besylate (Norvasc) 10 mg DAILY ORAL 05/10/18 09:00 06/09/18 08:59 05/10/18 08:20 Aspirin (ASA) 162 mg DAILY ORAL 05/10/18 09:00 06/09/18 08:59 05/10/18 08:20 Diltiazem HCl (Cardizem) 10 mg Q1H PRN IV heart rate more than 120, 05/09/18 18:15 06/08/18 18:14 Enalaprilat (Vasotec) 2.5 mg Q6H PRN IV sbp more than 160 05/09/18 18:15 06/08/18 18:14 Heparin Sodium (Porcine) (Heparin 5000 units/ml) 5,000 units EVERY 12 HOURS SUBQ 05/09/18 21:00 06/08/18 20:59 05/10/18 08:22 Ketorolac Tromethamine (Toradol 30mg) 30 mg Q6H PRN IV moderate pain ( 4-6) 05/09/18 18:15 05/14/18 18:14 05/10/18 08:25 Morphine Sulfate (Morphine Sulfate) 2 mg Q4H PRN IVP severe Pain (Pain Scale 7-10) 05/09/18 18:15 05/16/18 18:14 05/09/18 19:55 Nitroglycerin (Ntg) 0.4 mg Q5M PRN SL Prn Chest Pain 05/09/18 18:15 06/08/18 18:14 Ondansetron HCl (Zofran) 4 mg Q6H PRN IVP Nausea & Vomiting 05/09/18 18:15 06/08/18 18:14 Polyethylene Glycol (Miralax) 17 gm DAILYPRN PRN ORAL Constipation 05/09/18 18:15 06/08/18 18:14 Temazepam (Restoril) 15 mg HSPRN PRN ORAL Insomnia 05/09/18 18:15 05/16/18 18:14 Assessment/Plan Problem List: (1) ACS (acute coronary syndrome) ICD Codes: I24.9 - Acute ischemic heart disease, unspecified SNOMED: 575756540 (2) NSTEMI (non-ST elevated myocardial infarction) ICD Codes: I21.4 - Non-ST elevation (NSTEMI) myocardial infarction SNOMED: 88821623 (3) Costochondritis ICD Codes: M94.0 - Chondrocostal junction syndrome [[place]ze] SNOMED: 85185944 (4) HTN (hypertension) ICD Codes: I10 - Essential (primary) hypertension SNOMED: 22575822 (5) Depression ICD Codes: F32.9 - Major depressive disorder, single episode, unspecified SNOMED: 55864826 Assessment/Plan serial ekg, troponin, echo US of abdomen f/u troponin symptomatic treatment cardiology to see. dvt prophylaxis. Mitchel Mejia MD May 10, 2018 10:46
--- NOTE | 2018-05-10 11:00 | NUR ---
NURSE NOTES: SEEN BY DR LUO ORDERED GALL BLADDER ULTRASOUND.PATIENT MADE AWARE.
[2018-05-10] MEDS ORDERED: Lisinopril 10mg tab ORAL SCH (12:37)
--- NOTE | 2018-05-10 12:37 | NUR ---
NURSE NOTES: BP 155/103 HR 64,RECHECKED 148/[address] AGUIRRE MADE AWARE WITH ORDERS.NOTED AND CARRIED OUT.
[2018-05-10] MEDS ORDERED: Lisinopril 10mg tab ORAL PRN (12:45)
--- NOTE | 2018-05-10 14:28 | Cardiology Report ---
APPROVED REPORT EXAM: Two-dimensional and M-mode echocardiogram with Doppler and color Doppler. INDICATION LV FUNCTION M-Mode DIMENSIONS IVSd0.9 (0.7-1.1cm)Left Atrium (MM)3.1 (1.6-4.0cm) LVDd4.9 (3.5-5.6cm)Aortic Root3.0 (2.0-3.7cm) PWd1.3 (0.7-1.1cm)Aortic Cusp Exc.1.6 (1.5-2.0cm) IVSs1.5 cm LVDs3.1 (2.5-4.0cm) PWs2.1 cm Normal left ventricular chamber size, systolic function and wall motion . Left ventricular ejection fraction estimated to be 55-60%. Mild left ventricular hypertrophy by 2-D. Anterior Echo-free space, may be due to pericardial fat or effusion. Mild right atrial enlargement. Normal left atrial chamber size . Right ventricular chamber sizes is within normal limits. Mild aortic valve sclerosis with normal cusp excursion. Thickened mitral valve leaflets with normal excursion. Mild mitral annulus and aortic root calcification. Pulmonic valve not well visualized. IVC at normal size with physiologic collapse. A color flow and spectral Doppler study was performed and revealed: No aortic regurgitation. Mitral diastolic velocities suggest reduced left ventricular relaxation c/w mild LV diastolic dysfunction (Grade I ) Trace mitral regurgitation. Mild tricuspid regurgitation. Tricuspid systolic velocities suggests peak right ventricular systolic pressure of 25mmHg.
--- NOTE | 2018-05-10 14:47 | NUR ---
NURSE NOTES: GALL BLADDER ULTRASOUND DONE,PATIENT ATE LUNCH
--- NOTE | 2018-05-10 15:15 | Cardiology Report ---
APPROVED REPORT EKG Measurement Heart [id number] Sinus rhythm with premature atrial complexes Nonspecific T wave abnormality Abnormal ECG
--- NOTE | 2018-05-10 15:58 | NUR ---
*-* INSURANCE *-* AVAILABLE CLINICALS HAVE BEEN FAXED TO: [employer] P: [phone] F:[phone] INPT CM:[id number]
--- NOTE | 2018-05-10 16:30 | NUR ---
HAND-OFF: Report given to FRANKIE Issa.
--- NOTE | 2018-05-10 16:32 | Diagnostic Imaging Report ---
Indication: Right upper quadrant abdominal pain Technique: Lauren-scale and duplex images of the upper abdomen were obtained Doppler interrogation of the pancreatic and hepatic vessels Comparison: none Findings: Gallbladder is distended. No stones, wall thickening, nor pericholecystic fluid noted. Sonographic Eden's sign is negative. Common bile duct measures 8 mm in diameter. No intrahepatic biliary ductal dilatation. Liver demonstrates equivocally diffusely increased echogenicity; if real consistent with diffuse hepatocellular disease, most likely fatty change. Portal vein and hepatic veins are patent. Pancreas is unremarkable. Spleen is unremarkable. Left kidney measures 11.1 cm in length. Right kidney measures 10.3 cm length. Both kidneys demonstrate normal echogenicity. There is no hydronephrosis. No focal abnormality . Non-aneurysmal abdominal aorta . Impression: Negative for gallstones Borderline dilated common bile duct. May be age-related, downstream obstruction not completely excludable. Correlate with liver function tests, consider MRCP as clinically indicated Equivocal mild increased hepatic echogenicity, if real could indicate fatty change or other hepatocellular pathology
--- NOTE | 2018-05-10 16:47 | NUR ---
NURSE NOTES: Received patient from FRANKIE Del Real. Patient is alert and oriented x4. On room air and showing no signs and symptoms of pain and/or distress. Family member at bedside. Waiting on bed to transfer to TELE. Will continue plan of care.
--- NOTE | 2018-05-10 18:10 | History & Physical ---
History and Physical History & Physicial Evans Bernardo MD May 10, 2018 18:10
--- NOTE | 2018-05-10 18:37 | Cardiology Progress Note ---
Assessment/Plan Assessment/Plan The patient is seen and examined, full consult note is dictated. Objective Last 24 Hour Vital Signs Date Time Temp Pulse Resp B/P (MAP) Pulse Ox O2 Delivery O2 Flow Rate FiO2 05/10/18 17:00 Room Air 05/10/18 15:17 67 05/10/18 12:49 155/103 05/10/18 12:00 Room Air 05/10/18 12:00 61 05/10/18 08:55 97.9 05/10/18 08:20 69 153/77 05/10/18 08:00 70 05/10/18 08:00 Room Air 05/10/18 04:00 63 05/10/18 04:00 Room Air 05/10/18 00:00 66 05/09/18 23:49 Room Air 05/09/18 22:21 Room Air 05/09/18 21:50 Room Air 05/09/18 21:50 98.3 67 18 135/98 (110) 95 05/09/18 21:35 97.9 76 20 135/64 96 Room Air 05/09/18 21:13 76 20 135/64 96 Room Air 05/09/18 20:25 97.9 05/09/18 18:43 97.9 69 19 117/66 100 Room Air Intake and Output 05/09/18 05/10/18 19:00 07:00 Intake Total 0 ml 500 ml Balance 0 ml 500 ml Intake Oral 0 ml 500 ml # Voids 1 6 Laboratory Tests Test 05/10/18 04:20 White Blood Count 6.5 K/UL (4.8-10.8) Red Blood Count 4.15 M/UL (4.20-5.40) L Hemoglobin 13.1 G/DL (12.0-16.0) Hematocrit 38.6 % (37.0-47.0) Mean Corpuscular Volume 93 FL (80-99) Mean Corpuscular Hemoglobin 31.6 PG (27.0-31.0) H Mean Corpuscular Hemoglobin Concent 33.9 G/DL (32.0-36.0) Red Cell Distribution Width 12.1 % (11.6-14.8) Platelet Count 204 K/UL (150-450) Mean Platelet Volume 7.4 FL (6.5-10.1) Neutrophils (%) (Auto) 54.7 % (45.0-75.0) Lymphocytes (%) (Auto) 36.0 % (20.0-45.0) Monocytes (%) (Auto) 6.3 % (1.0-10.0) Eosinophils (%) (Auto) 2.1 % (0.0-3.0) Basophils (%) (Auto) 0.8 % (0.0-2.0) Prothrombin Time 10.7 SEC (9.30-11.50) Prothromb Time International Ratio 1.0 (0.9-1.1) Activated Partial Thromboplast Time 26 SEC (23-33) Troponin I 0.146 ng/mL (0.000-0.056) C-Reactive Protein, Quantitative < 0.4 mg/dL (0.00-0.90) Triglycerides Level 139 MG/DL (30-150) Cholesterol Level 206 MG/DL (< 200) H LDL Cholesterol 104 mg/dL (<100) H HDL Cholesterol 78 MG/DL (40-60) H Cholesterol/HDL Ratio 2.6 (3.3-4.4) L Thyroid Stimulating Hormone (TSH) 1.051 uiU/mL (0.358-3.740) Elian Chino MD May 10, 2018 18:37
[2018-05-10 20:00] VITALS: BP 123/77
--- NOTE | 2018-05-10 20:45 | Consultation ---
History of Present Illness General Chief Complaint: General Complaint Present Illness Allergies: Coded Allergies: SULFAMETHOXAZOLE (Verified Allergy, Unknown, Rash, 05/10/15) and itchiness on foot TRIMETHOPRIM (Verified Allergy, Unknown, Rash, 05/10/15) and itchiness on foot Medication History Scheduled Albuterol Sulfate (Ventolin Hfa), 2 PUFFS INH QID, (Reported) Amlodipine Besylate* (Amlodipine Besylate*), 10 MG ORAL DAILY, (Reported) Asenapine Maleate (Saphris), 5 MG SL QHS, (Reported) Cetirizine Hcl* (Zyrtec*), 10 MG ORAL DAILY Cholecalciferol (Vitamin D3)* (Vitamin D*), 1,000 UNITS ORAL TWICE A DAY, ( Reported) Citalopram Hydrobromide* (Citalopram Hbr*), 40 MG ORAL QHS, (Reported) Colchicine (Colcrys), 0.6 MG PO DAILY, (Reported) Fluticasone Propionate (Flovent Hfa), 1 PUFF INH BID, (Reported) Hydrochlorothiazide* (Hydrochlorothiazide*), 12.5 MG ORAL DAILY, (Reported) Loratadine (Loratadine), 10 MG PO DAILY, (Reported) Ramipril* (Ramipril*), 5 MG ORAL DAILY, (Reported) Scheduled PRN Oxycodone Hcl/Acetaminophen 10-325* (Oxycodone-Acetaminophen 10-325*), 1 TAB ORAL Q8H PRN for Severe Pain (Pain Scale 7-10), (Reported) Discontinued Medications Amoxicillin/Potassium Clav 875-125* (Augmentin 875-125 Tablet*), 1 TAB ORAL TWICE A DAY Discontinued Reason: Therapy completed Diphenhydramine Hcl* (Benadryl*), 25 MG ORAL Q6H PRN for Itching Discontinued Reason: Therapy completed Hydrocodone Bit/Acetaminophen 10-325* ([place] 10-325*), 1 TAB ORAL Q6H PRN for For Pain Discontinued Reason: Therapy completed Hydrocodone Bit/Acetaminophen 5-325* ([place] 5-325*), 1 TAB ORAL Q6H PRN for For Pain Discontinued Reason: Therapy completed Hydrocodone/Acetaminophen (Hydrocodon-Acetaminophn 10-325), 1 TAB ORAL Q8H PRN for For Pain, (Reported) Discontinued Reason: Therapy completed Hydrocortisone 1% cream (Hydrocortisone 1% cream), 28.4 GM RC DAILY Discontinued Reason: Therapy completed Ibuprofen* (Motrin*), 600 MG ORAL Q6H PRN for For Pain Discontinued Reason: Therapy completed Ondansetron (Zofran), 4 MG ORAL Q6H PRN for Nausea & Vomiting Discontinued Reason: Therapy completed Oseltamivir Phosphate (Tamiflu), 75 MG ORAL TWICE A DAY Discontinued Reason: Therapy completed Patient History Healthcare decision maker Resuscitation status Full Code Advanced Directive on File Physical Exam Last 24 Hour Vital Signs Date Time Temp Pulse Resp B/P (MAP) Pulse Ox O2 Delivery O2 Flow Rate FiO2 05/10/18 20:38 62 18 Room Air 21 05/10/18 20:00 Room Air 05/10/18 20:00 97.9 70 20 123/77 (92) 98 05/10/18 17:00 Room Air 05/10/18 15:17 67 05/10/18 12:49 155/103 05/10/18 12:00 Room Air 05/10/18 12:00 61 05/10/18 08:55 97.9 05/10/18 08:20 69 153/77 05/10/18 08:00 70 05/10/18 08:00 Room Air 05/10/18 04:00 63 05/10/18 04:00 Room Air 05/10/18 00:00 66 05/09/18 23:49 Room Air 05/09/18 22:21 Room Air 05/09/18 21:50 Room Air 05/09/18 21:50 98.3 67 18 135/98 (110) 95 05/09/18 21:35 97.9 76 20 135/64 96 Room Air 05/09/18 21:13 76 20 135/64 96 Room Air Intake and Output 05/09/18 05/10/18 19:00 07:00 Intake Total 0 ml 500 ml Balance 0 ml 500 ml Intake Oral 0 ml 500 ml # Voids 1 6 Laboratory Tests Test 05/10/18 04:20 White Blood Count 6.5 K/UL (4.8-10.8) Red Blood Count 4.15 M/UL (4.20-5.40) L Hemoglobin 13.1 G/DL (12.0-16.0) Hematocrit 38.6 % (37.0-47.0) Mean Corpuscular Volume 93 FL (80-99) Mean Corpuscular Hemoglobin 31.6 PG (27.0-31.0) H Mean Corpuscular Hemoglobin Concent 33.9 G/DL (32.0-36.0) Red Cell Distribution Width 12.1 % (11.6-14.8) Platelet Count 204 K/UL (150-450) Mean Platelet Volume 7.4 FL (6.5-10.1) Neutrophils (%) (Auto) 54.7 % (45.0-75.0) Lymphocytes (%) (Auto) 36.0 % (20.0-45.0) Monocytes (%) (Auto) 6.3 % (1.0-10.0) Eosinophils (%) (Auto) 2.1 % (0.0-3.0) Basophils (%) (Auto) 0.8 % (0.0-2.0) Prothrombin Time 10.7 SEC (9.30-11.50) Prothromb Time International Ratio 1.0 (0.9-1.1) Activated Partial Thromboplast Time 26 SEC (23-33) Troponin I 0.146 ng/mL (0.000-0.056) C-Reactive Protein, Quantitative < 0.4 mg/dL (0.00-0.90) Triglycerides Level 139 MG/DL (30-150) Cholesterol Level 206 MG/DL (< 200) H LDL Cholesterol 104 mg/dL (<100) H HDL Cholesterol 78 MG/DL (40-60) H Cholesterol/HDL Ratio 2.6 (3.3-4.4) L Thyroid Stimulating Hormone (TSH) 1.051 uiU/mL (0.358-3.740) Height (Feet): 5 Height (Inches): 4.00 Weight (Pounds): 190 Medications Current Medications Medications (Trade) Dose Ordered Sig/[place] Route PRN Reason Start Time Stop Time Status Last Admin Dose Admin Acetaminophen (Tylenol) 650 mg Q4H PRN ORAL FEVER 05/09/18 18:15 06/08/18 18:14 Albuterol/ Ipratropium (Albuterol/ Ipratropium) 3 ml Q4H PRN HHN Shortness of Breath 05/09/18 18:15 05/14/18 18:14 Amlodipine Besylate (Norvasc) 10 mg DAILY ORAL 05/10/18 09:00 06/09/18 08:59 05/10/18 08:20 Aspirin (ASA) 162 mg DAILY ORAL 05/10/18 09:00 06/09/18 08:59 05/10/18 08:20 Diltiazem HCl (Cardizem) 10 mg Q1H PRN IV heart rate more than 120, 05/09/18 18:15 06/08/18 18:14 Enalaprilat (Vasotec) 2.5 mg Q6H PRN IV sbp more than 160 05/09/18 18:15 06/08/18 18:14 Heparin Sodium (Porcine) (Heparin 5000 units/ml) 5,000 units EVERY 12 HOURS SUBQ 05/09/18 21:00 06/08/18 20:59 05/10/18 20:26 Ketorolac Tromethamine (Toradol 30mg) 30 mg Q6H PRN IV moderate pain ( 4-6) 05/09/18 18:15 05/14/18 18:14 05/10/18 20:22 Lisinopril (Zestril) 10 mg BIDPRN PRN ORAL For High Blood Pressure 05/10/18 12:45 06/09/18 12:44 Morphine Sulfate (Morphine Sulfate) 2 mg Q4H PRN IVP severe Pain (Pain Scale 7-10) 05/09/18 18:15 05/16/18 18:14 05/09/18 19:55 Nitroglycerin (Ntg) 0.4 mg Q5M PRN SL Prn Chest Pain 05/09/18 18:15 06/08/18 18:14 Ondansetron HCl (Zofran) 4 mg Q6H PRN IVP Nausea & Vomiting 05/09/18 18:15 06/08/18 18:14 Polyethylene Glycol (Miralax) 17 gm DAILYPRN PRN ORAL Constipation 05/09/18 18:15 06/08/18 18:14 Temazepam (Restoril) 15 mg HSPRN PRN ORAL Insomnia 05/09/18 18:15 05/16/18 18:14 05/10/18 20:21 Niharika Denny MD May 10, 2018 20:45
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
--- NOTE | 2018-05-10 23:15 | Consultation ---
DATE OF CONSULTATION: 05/10/2018 CARDIOLOGY CONSULTATION CONSULTING PHYSICIAN: Elian Chino M.D. REFERRING PHYSICIAN: Evans Bernardo M.D. REASON FOR CONSULTATION: Management of uci-KP-vkwetlaox myocardial infarction. HISTORY OF PRESENT ILLNESS: This is a very unfortunate 68-year-old female with history of hypertension, family history of congestive heart failure that occurred in her mom in mid 70s, and history of congestive heart failure, who presents to the hospital with acute onset of shortness of breath with associated pleuritic chest pain, inability to take deep breaths, and couple of days of lower extremity pain around the calf muscles. The patient states that her leg pains went away after couple of days. At the time of my evaluation, she did not have any pleuritic chest pain. At the time of arrival to the hospital, blood pressure was 136/90 and pulse of 82. A 12-lead electrocardiogram was significant for sinus rhythm with frequent atrial premature complexes and nonspecific ST and T-wave abnormalities. The patient's troponin I level was elevated at 0.147 and repeat of 0.12. Therefore, Cardiology consultation was made at the request of Dr. Bernardo for assessment of jmj-JX-xncsyimyr myocardial infarction. PAST MEDICAL HISTORY: 1. Hypertension. 2. History of chronic obstructive pulmonary disease. 3. History of arthritis. 4. History of vocal cord polyps status post polypectomy. PAST SURGICAL HISTORY: Polypectomy of vocal cords. MEDICATIONS: List of medications at home includes amlodipine 10 mg p.o. daily, albuterol 2 puffs inhaler every 6 hours, Saphris 5 mg sublingual at bedtime, Zyrtec 10 mg p.o. daily, vitamin D 1000 units by mouth twice daily, citalopram 40 mg p.o. at bedtime, Colcrys 0.6 mg daily, Flovent 1 puff inhaler twice daily, hydrochlorothiazide 12.5 mg daily, loratadine 10 mg p.o. daily, oxycodone acetaminophen 10/325 one tablet q.8 hours p.r.n. severe pain, and ramipril 5 mg p.o. daily. ALLERGIES: Allergic to sulfamethoxazole and trimethoprim. FAMILY HISTORY: Mother had congestive heart failure in the mid 70s. Did not have any bypass or coronary artery stents. Father had cancer. SOCIAL HISTORY: Smoked tobacco in the past. Denies any alcohol or illicit drug use. REVIEW OF SYSTEMS: HEENT: Denies any headache, diplopia, or blurred vision. CONSTITUTIONAL: Denies any fever, chills, night sweats, or weight loss. CARDIOVASCULAR: Pleuritic chest pain as mentioned above in the right side of the chest with associated shortness of breath. Prior to this event, the patient also had dyspnea on exertion with activities of daily living. Denies any PND, orthopnea, leg swelling, or syncopal event. PULMONARY: Denies any cough, hemoptysis, or wheezing. GASTROINTESTINAL: Denies any nausea, vomiting, diarrhea, constipation, abdominal pain, or GI bleed. GENITOURINARY: Denies any hematuria, dysuria, or incontinence. NEUROLOGY: Denies any motor dysfunction, sensory deficit, or altered speech. PHYSICAL EXAMINATION: VITAL SIGNS: Blood pressure at the time of arrival to the hospital was 136/90, pulse of 82, respirations of 16, O2 saturation 95% on room air, and temperature 98.3 degrees Fahrenheit. GENERAL: The patient is a very pleasant 68-year-old lady in no apparent respiratory distress. Alert and oriented x4. HEENT: Atraumatic and normocephalic. Anicteric. Pupils are equal, round, and reactive to light and accommodation. Extraocular muscles intact. NECK: JVP is just about 7 to 8 cm. No carotid bruits. Carotid upstrokes 2+ bilaterally. CVS: Normal S1, S2. Irregular. No murmurs, gallops, or rubs. PMI is at fourth intercostal space in the midclavicular line. LUNGS: Clear to auscultation bilaterally. ABDOMEN: Soft, nontender, and nondistended. No hepatosplenomegaly. Positive bowel sounds. EXTREMITIES: No evidence of edema, clubbing, or cyanosis. LABORATORY FINDINGS: Sodium is 139, potassium is 3.4, chloride 99, bicarbonate 28, BUN of 14, creatinine 0.7, glucose is 107, calcium is 8.6, troponin I 0.147 and 0.12, and 0.146. ProBNP was 117. Total cholesterol 206. LDL of 104 and HDL of 78. TSH of 1.05. INR is 1.0. A 12-lead electrocardiogram, sinus rhythm at 79 with left axis deviation, frequent single ventricular premature complexes, and nonspecific ST and T-wave abnormalities. Chest x-ray showed cardiomegaly with no pulmonary edema. A 2D echocardiography revealed normal LV systolic function and normal wall motion, LVEF of 55% to 60%, mild left ventricular hypertrophy, mild right atrial enlargement, and grade 1 LV diastolic dysfunction. Her right ventricular systolic pressure measured at 25 mmHg consistent with normal pulmonary artery pressure. ASSESSMENT AND PLAN: The patient is a very unfortunate 68-year-old lady, who is seen in Cardiology consultation. 1. Right-sided chest pain is unlikely to be consistent with acute coronary syndrome based on the characteristics of the pain. However, the troponin I level is slightly elevated. The patient may have demand ischemia or type 2 xdp-TR-wklhqruwg myocardial infarction. A 12-lead electrocardiogram does not show any acute ischemic features. I discussed with the patient regarding obtaining a noninvasive stress test and possibly tests, which can be done in the outpatient setting. The patient can follow up with Dr. Bernardo as an outpatient and an arrangement for cardiac stress test can be done in the office setting. The patient has coronary artery disease risk factors including hypertension, hypercholesterolemia, and age as well as history of tobacco use. A 2D echocardiography does not show any wall motion abnormalities. 2. Pleuritic chest pain. Of note, the pulmonary embolism is ruled out with negative D-dimer. 3. History of hypertension. I would agree with continuation of amlodipine and lisinopril. 4. History of chronic obstructive pulmonary disease. I would like to thank, Dr. Bernardo, for allowing me to participate in the care of this patient. Elian Chino M.D. DR: JACKELYN JOB#: [id number] CC:
[2018-05-11] VITALS: BP 138/77
[2018-05-11 04:00] VITALS: BP 132/80
--- NOTE | 2018-05-11 06:10 | NUR ---
NURSE NOTES: Transferred patient to TELE 210-2. Report given to FRANKIE Wolfe. Belongings accounted for by bedside, patient is stable.
[2018-05-11] MEDS ORDERED: Nitroglycerin Subl 0.4mg tab SL PRN (06:30)
--- NOTE | 2018-05-11 06:30 | NUR ---
NURSE NOTES:Rerceived from ADAMA . Report received from previous nurse. Assume care. Received awake and alert resp even and unlabored. No acute distress noted. Connect to monitor with sinus rhythm noted.
[2018-05-11] MEDS ORDERED: dilTIAZem HCl 25mg/5ml Inj IV PRN (07:00)
[2018-05-11] MEDS ORDERED: Morphine Sulfate 2mg/ml Inj(IV/IM USE ONLY) IVP PRN (07:00)
[2018-05-11] MEDS ORDERED: Albuterol/Ipratropium 3ml neb HHN PRN (07:00)
[2018-05-11] MEDS ORDERED: Miralax 17gm pkt ORAL PRN (07:00)
[2018-05-11] MEDS ORDERED: Lisinopril 10mg tab ORAL PRN (07:00)
[2018-05-11] MEDS ORDERED: Ketorolac 30mg Inj IV PRN (07:00)
[2018-05-11] MEDS ORDERED: Enalaprilat 2.5mg/2ml Inj IV PRN (07:00)
--- NOTE | 2018-05-11 07:17 | NUR ---
NURSE NOTES: Report given to on coming RN
--- NOTE | 2018-05-11 07:40 | NUR ---
NURSE NOTES: Received pt. and report from FRANKIE Wolfe. Patient is sitting at the edge of bed, eating breakfast. Alert and oriented x4. alarm security or surveillance monitor is in placed. Call light and bed side table within reach, Call light on. Bed is in the lowest position with two side rails up and locked. No acute distress noted at this time. Will continue to monitor and follow plan of care. Addendum: 05/11/18 at 0757 by TIFFANI LEUNG RN RN NURSE NOTES: Report received by FRANKIE Hoyt.
[2018-05-11 08:00] VITALS: BP 137/69
[2018-05-11] MEDS ORDERED: Heparin 5000 units/ml inj SUBQ SCH (09:00)
[2018-05-11] MEDS ORDERED: Aspirin Baby 81mg ORAL SCH (09:00)
--- NOTE | 2018-05-11 09:22 | Pulmonology Progress Note ---
Assessment/Plan Problems: (1) ACS (acute coronary syndrome) (2) NSTEMI (non-ST elevated myocardial infarction) (3) Costochondritis (4) HTN (hypertension) (5) Depression Assessment/Plan Echo reviewed cardiac note reviewed symptomatic treatment dc home with f/u with primary for stress testing Subjective ROS Limited/Unobtainable: No Constitutional: Reports: no symptoms HEENT: Repors: no symptoms Respiratory: Reports: no symptoms Cardiovascular: Reports: no symptoms Gastrointestinal/Abdominal: Reports: no symptoms Allergies: Coded Allergies: SULFAMETHOXAZOLE (Verified Allergy, Unknown, Rash, 05/10/15) and itchiness on foot TRIMETHOPRIM (Verified Allergy, Unknown, Rash, 05/10/15) and itchiness on foot Objective Last 24 Hour Vital Signs Date Time Temp Pulse Resp B/P (MAP) Pulse Ox O2 Delivery O2 Flow Rate FiO2 05/11/18 08:51 66 18 Room Air 21 05/11/18 08:41 79 137/69 05/11/18 08:00 Room Air 05/11/18 08:00 96.9 79 20 137/69 (91) 98 05/11/18 04:00 Room Air 05/11/18 04:00 97.3 63 20 132/80 (97) 97 05/11/18 03:42 58 05/11/18 00:00 97.7 65 20 138/77 (97) 99 05/11/18 00:00 Room Air 05/10/18 23:30 66 05/10/18 20:38 62 18 Room Air 21 05/10/18 20:00 Room Air 05/10/18 20:00 97.9 70 20 123/77 (92) 98 05/10/18 19:03 66 05/10/18 17:00 Room Air 05/10/18 15:17 67 05/10/18 12:49 155/103 05/10/18 12:00 Room Air 05/10/18 12:00 61 Intake and Output 05/10/18 05/11/18 19:00 07:00 Intake Total 700 ml Balance 700 ml Intake Oral 700 ml # Voids 2 3 # Bowel Movements 2 General Appearance: WD/WN HEENT: normocephalic, atraumatic Respiratory/Chest: chest wall non-tender, lungs clear Cardiovascular: normal peripheral pulses, normal rate Abdomen: normal bowel sounds, soft, non tender Genitourinary: normal external genitalia Skin: no rash Neurologic/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-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 grossly normal Current Medications Medications (Trade) Dose Ordered Sig/[place] Route PRN Reason Start Time Stop Time Status Last Admin Dose Admin Acetaminophen (Tylenol) 650 mg Q4H PRN ORAL FEVER 05/11/18 07:00 06/08/18 06:59 Albuterol/ Ipratropium (Albuterol/ Ipratropium) 3 ml Q4H PRN HHN Shortness of Breath 05/11/18 07:00 05/14/18 06:59 Amlodipine Besylate (Norvasc) 10 mg DAILY ORAL 05/11/18 09:00 06/09/18 08:59 05/11/18 08:41 Aspirin (ASA) 162 mg DAILY ORAL 05/11/18 09:00 06/09/18 08:59 05/11/18 08:41 Diltiazem HCl (Cardizem) 10 mg Q1H PRN IV heart rate more than 120, 05/11/18 07:00 06/08/18 06:59 Enalaprilat (Vasotec) 2.5 mg Q6H PRN IV sbp more than 160 05/11/18 07:00 06/08/18 06:59 Heparin Sodium (Porcine) (Heparin 5000 units/ml) 5,000 units EVERY 12 HOURS SUBQ 05/11/18 09:00 06/08/18 20:59 05/11/18 08:43 Ketorolac Tromethamine (Toradol 30mg) 30 mg Q6H PRN IV moderate pain ( 4-6) 05/11/18 07:00 05/16/18 06:59 05/11/18 08:42 Lisinopril (Zestril) 10 mg BIDPRN PRN ORAL For High Blood Pressure 05/11/18 07:00 06/09/18 06:59 Morphine Sulfate (Morphine Sulfate) 2 mg Q4H PRN IVP severe Pain (Pain Scale 7-10) 05/11/18 07:00 05/16/18 06:59 Nitroglycerin (Ntg) 0.4 mg Q5M PRN SL Prn Chest Pain 05/11/18 06:30 06/08/18 18:14 Ondansetron HCl (Zofran) 4 mg Q6H PRN IVP Nausea & Vomiting 05/11/18 07:00 06/08/18 06:59 Polyethylene Glycol (Miralax) 17 gm DAILYPRN PRN ORAL Constipation 05/11/18 07:00 06/08/18 06:59 Temazepam (Restoril) 15 mg HSPRN PRN ORAL Insomnia 05/11/18 20:00 05/16/18 19:59 Mitchel Mejia MD May 11, 2018 09:21
[2018-05-11] MEDS ORDERED: ASPIRIN81 MG ORAL (09:24)
[2018-05-11] MEDS ORDERED: NORVASC10 MG ORAL (09:24)
[2018-05-11 09:34] LABS: BASOPHILS % (AUTO) 0.8 % (0.0-2.0); EOSINOPHILS % (AUTO) 1.3 % (0.0-3.0); HEMATOCRIT 41.9 % (37.0-47.0); HEMOGLOBIN 14.2 G/DL (12.0-16.0); LYMPHOCYTES % (AUTO) 25.7 % (20.0-45.0); MEAN CORPUSCULAR VOLUME 93 FL (80-99); MONOCYTES % (AUTO) 5.6 % (1.0-10.0); NEUTROPHILS % (AUTO) 66.7 % (45.0-75.0); PLATELET COUNT 229 K/UL (150-450); RED BLOOD COUNT 4.53 M/UL (4.20-5.40); RED CELL DISTRIBUTION WIDTH 11.8 % (11.6-14.8); WHITE BLOOD COUNT 6.6 K/UL (4.8-10.8)
[2018-05-11 10:41] LABS: ALANINE AMINOTRANSFERASE 35 U/L (12-78); ALBUMIN 4.1 G/DL (3.4-5.0); ALBUMIN/GLOBULIN RATIO 1.2 (1.0-2.7); ALKALINE PHOSPHATASE 72 U/L (46-116); ANION GAP 9 mmol/L (5-15); ASPARTATE AMINO TRANSFERASE 31 U/L (15-37); BILIRUBIN,TOTAL 0.7 MG/DL (0.2-1.0); BLOOD UREA NITROGEN 13 mg/dL (7-18); CALCIUM 8.7 MG/DL (8.5-10.1); CARBON DIOXIDE 32 MMOL/L (21-32); CHLORIDE 102 MMOL/L (98-107); CREATININE 0.7 MG/DL (0.55-1.30); PHOSPHORUS 3.9 MG/DL (2.5-4.9); POTASSIUM 3.3 MMOL/L (3.5-5.1); SODIUM 143 MMOL/L (136-145)
[2018-05-11 12:00] VITALS: BP 130/89
[2018-05-11] MEDS ORDERED: Potassium Chloride 40 MEQ in Sodium Chloride 550 ML IVPB SCH (12:00)
--- NOTE | 2018-05-11 15:12 | NUR ---
NURSE NOTES: Patient refused Potassium IV, so Dr switch that to oral.
--- NOTE | 2018-05-11 15:23 | NUR ---
NURSE NOTES: Patient discharged home per dr. Mejia's order. All discharge instructions explained to patient and friend, verbalized understanding.Heart monitor removed and returned to library monitor. IV removed. ID band removed and patient took it with herself. Patient discharged home, self care in stable condition and with private car.
--- NOTE | 2018-05-11 22:04 | General Progress Note ---
Subjective Allergies: Coded Allergies: SULFAMETHOXAZOLE (Verified Allergy, Unknown, Rash, 05/10/15) and itchiness on foot TRIMETHOPRIM (Verified Allergy, Unknown, Rash, 05/10/15) and itchiness on foot Objective Last 24 Hour Vital Signs Date Time Temp Pulse Resp B/P (MAP) Pulse Ox O2 Delivery O2 Flow Rate FiO2 05/11/18 12:00 Room Air 05/11/18 12:00 98.1 65 18 130/89 (103) 95 05/11/18 08:51 66 18 Room Air 21 05/11/18 08:41 79 137/69 05/11/18 08:00 Room Air 05/11/18 08:00 78 05/11/18 08:00 96.9 79 20 137/69 (91) 98 05/11/18 04:00 Room Air 05/11/18 04:00 97.3 63 20 132/80 (97) 97 05/11/18 03:42 58 05/11/18 00:00 97.7 65 20 138/77 (97) 99 05/11/18 00:00 Room Air 05/10/18 23:30 66 Intake and Output 05/10/18 05/11/18 19:00 07:00 Intake Total 700 ml Balance 700 ml Intake Oral 700 ml # Voids 2 3 # Bowel Movements 2 Laboratory Tests 05/11/18 07:52: White Blood Count 6.6, Red Blood Count 4.53, Hemoglobin 14.2, Hematocrit 41.9, Mean Corpuscular Volume 93, Mean Corpuscular Hemoglobin 31.5H, Mean Corpuscular Hemoglobin Concent 34.0, Red Cell Distribution Width 11.8, Platelet Count 229, Mean Platelet Volume 7.0, Neutrophils (%) (Auto) 66.7, Lymphocytes (%) (Auto) 25.7, Monocytes (%) (Auto) 5.6, Eosinophils (%) (Auto) 1.3, Basophils (%) (Auto ) 0.8, Erythrocyte Sedimentation Rate 12, Sodium Level 143, Potassium Level 3.3L , Chloride Level 102, Carbon Dioxide Level 32, Anion Gap 9, Blood Urea Nitrogen 13, Creatinine 0.7, Estimat Glomerular Filtration Rate > 60, Glucose Level 117H , Calcium Level 8.7, Phosphorus Level 3.9, Magnesium Level 1.6L, Total Bilirubin 0.7, Aspartate Amino Transf (AST/SGOT) 31, Alanine Aminotransferase ( ALT/SGPT) 35, Alkaline Phosphatase 72, Troponin I 0.133H, Total Protein 7.4, Albumin 4.1, Globulin 3.3, Albumin/Globulin Ratio 1.2 Height (Feet): 5 Height (Inches): 4.00 Weight (Pounds): 190 Niharika Denny MD May 11, 2018 22:04
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
== END 2018-05-11 15:25 | disposition home or self-care (01) | DRG 190 ==
LOC: EMR 10:55 → EDBEDREQSVC 16:14 → EDBEDREQ 16:14 → 2W 17:38 → EDBEDREQ 21:26 → 2W 23:25 → 2E 05-11 06:10
DX: I21.A1 Myocardial infarction type 2 (principal); E66.01 Morbid (severe) obesity due to excess calories; J44.9 Chronic obstructive pulmonary disease, unspecified; E78.5 Hyperlipidemia, unspecified; I10 Essential (primary) hypertension; Z82.49 Family history of ischemic heart disease and other diseases of the circulatory system; R07.81 Pleurodynia; F32.9 Major depressive disorder, single episode, unspecified; M94.0 Chondrocostal junction syndrome [Tietze]; Z88.2 Allergy status to sulfonamides; Z88.8 Allergy status to other drugs, medicaments and biological substances
CPT/HCPCS: 36415; 71045; 76700; 80053; 80061; 83735; 83880; 84100; 84443; 84484; 85025; 85379; 85610; 85651; 85730; 86140; 93005; 93306; 94664; 96374; 96375; 99285; J2405; J8499

== ENCOUNTER 2018-10-24 13:03 | Emergency (ER) | payer MEDICARE, MEDICAID ==
[~2018-10-24] VITALS: Ht 162.6 cm; Wt 81.6 kg
[~2018-10-24 13:03] MED LIST changes: +ASPIRIN81 MG ORAL; +COLCRYS0.6 M1 PO; +FLOVENT HFA10.6 GM INH; +LORATADINE10 M2 PO; +NORVASC10 MG ORAL; +VITAMIN D1000 UNI1 ORAL
[2018-10-24 13:20] VITALS: BP 141/81
--- NOTE | 2018-10-24 13:20 | NUR ---
ED Nurse Note: pt walked in due to vaginal itchiness started 2 weeks ago. pt denies having sex for a long time. pt stated she has dysuria at time. pt able to give urine sample. will continue to monitor.
--- NOTE | 2018-10-24 13:40 | NUR ---
ED Nurse Note: ermd on bedside assessing pt with gal zhang. will continue to monitor.
--- NOTE | 2018-10-24 13:51 | Emergency Room Report ---
History of Present Illness General Chief Complaint: Vaginal Source: Patient Present Illness HPI 68-year-old female presents with vaginal itching x2 weeks last sexual encounter was 8 months ago, no fever no chills, no pain, she endorses vaginal itching, no discharge, she is noted smells as well, no aggravating or alleviating factors, severity is mild, no radiation of pain Allergies: Coded Allergies: SULFAMETHOXAZOLE (Verified Allergy, Unknown, Rash, 05/10/15) and itchiness on foot TRIMETHOPRIM (Verified Allergy, Unknown, Rash, 05/10/15) and itchiness on foot Patient History Past Medical History: see triage record Now: No Reviewed Nursing Documentation: PMH: Agreed; PSxH: Agreed Nursing Documentation-PMH Past Medical History: No History, Except For Hx Cardiac Problems: No - HTN HYSTERECTOMY Hx Hypertension: Yes Hx Asthma: Yes Hx COPD: Yes Hx Diabetes: No Hx Cancer: No - Vocal cord polyp(s/p polypectomy in 01/2015) Hx Neurological Problems: No Hx Cerebrovascular Accident: No Review of Systems All Other Systems: negative except mentioned in HPI Physical Exam Vital Signs Date Time Temp Pulse Resp B/P (MAP) Pulse Ox O2 Delivery O2 Flow Rate FiO2 10/24/18 13:11 98.8 75 14 141/81 (101) Room Air Sp02 EP Interpretation: reviewed, normal General Appearance: well appearing, no apparent distress, alert Head: normocephalic, atraumatic Eyes: bilateral eye PERRL, bilateral eye EOMI ENT: uvula midline, moist mucus membranes Neck: supple, thyroid normal, supple/symm/no masses Respiratory: lungs clear, no respiratory distress, no retraction, no accessory muscle use Cardiovascular #1: normal peripheral pulses, regular rate, rhythm, no edema, no gallop, no murmur Gastrointestinal: non tender, soft, no guarding, no rebound Genitourinary: other Musculoskeletal: normal inspection Neurologic: alert, oriented x3 Psychiatric: mood/affect normal Skin: no rash, warm/dry Medical Decision Making Diagnostic Impression: Primary Impression: Candidal vaginitis ER Course Patient most likely with Shirley vaginitis, patient counseled to follow-up with gynecology, will provide patient with fluconazole here, disposition home with return precautions Last Vital Signs Date Time Temp Pulse Resp B/P (MAP) Pulse Ox O2 Delivery O2 Flow Rate FiO2 10/24/18 13:20 98.8 66 14 141/81 Room Air Disposition: HOME, SELF-CARE Condition: Stable Referrals: [facility] Tasneem Perez. [facility] Patient Instructions: Vaginal Yeast Infection, Adult, Vaginitis, [id number] Additional Instructions: The patient was provided with discharge instructions, notified to follow-up with a primary care doctor and or specialist in the next 24-48 hours, and to return to the ED if they have worsening of their symptoms. Please note that this report is being documented using [employer] technology. This can lead to erroneous entry secondary to incorrect interpretation by the dictating instrument. Follow-up with Gynecology in 24-48 hours Jason Key MD Oct 24, 2018 13:51
--- NOTE | 2018-10-24 13:54 | NUR ---
ED Nurse Note: pt is medicated and tolerate well.
[2018-10-24 13:58] VITALS: BP 141/81
--- NOTE | 2018-10-24 13:58 | NUR ---
ER DISCHARGE NOTE: Patient is cleared to be discharged per ERMD, pt is aox4, on room air, with stable vital signs. pt was given dc and prescription instructions, pt was able to verbalize understanding, pt id band removed without complications. pt is able to ambulate with steady gait. pt took all belongings.
[2018-10-24] MEDS ORDERED: Fluconazole 150mg tab ORAL ONE (14:00)
== END 2018-10-24 13:58 | disposition home or self-care (01) ==
LOC: EMR 13:56
DX: B37.3 Candidiasis of vulva and vagina (principal); I10 Essential (primary) hypertension; J44.9 Chronic obstructive pulmonary disease, unspecified; Z90.710 Acquired absence of both cervix and uterus; Z88.2 Allergy status to sulfonamides
CPT/HCPCS: 99282

== ENCOUNTER 2018-12-03 09:32 | Emergency (ER) | payer MEDICARE, MEDICAID ==
[~2018-12-03] VITALS: Ht 162.6 cm; Wt 83.9 kg
--- NOTE | 2018-12-03 09:40 | NUR ---
ED Nurse Note: PT WALKED IN TO ER TODAY FROM HOME. AOX4. PT C/O CHRONIC BILATERAL KNEE PAIN, 01/02. PT DENIES ANY RECENT INJURY OR TRAUMA. FULL ROM OF BILATERAL KNEES, CIRCULATION AND SENSATION INTACT. GAIT STEADY IN ER.
--- NOTE | 2018-12-03 10:02 | NUR ---
ED Nurse Note: EMT AT BEDSIDE FOR VIKI WRAP OF KNEE. PT PROVIDED WITH CANE AND EDUCATED ON PROPER USE OF ASSISTIVE DEVICE. PT ABLE TO DEMONSTRATE STEADY AMBULATION WITH PROPER USE OF ASSISTIVE DEVICE.
[2018-12-03] MEDS ORDERED: DICLOFENAC SODI75 MG ORAL (10:05)
[2018-12-03] MEDS ORDERED: NORCO 5-325 TA1 EACH ORAL (10:05)
--- NOTE | 2018-12-03 10:10 | NUR ---
ED Nurse Note: PT LAYING PEACEFULLY IN BED IN NAD. AOX4. PRESCRIPTIONS AND DISCHARGE PAPERWORK EXPLAINED TO PT. PT VERBALIZES UNDERSTANDING AND ALL QUESTIONS ANSWERED. PRESCRIPTIONS AND DISCHARGE PAPERWORK GIVEN TO PT AND ID WRISTBAND REMOVED. PT WALKED OUT OF ER WITH STEADY GAIT AND PROPER USE OF ASSISTIVE DEVICE ACCOMPANIED BY FRIEND.
[2018-12-03 10:11] VITALS: BP 172/82
[2018-12-03] MEDS ORDERED: Ketorolac 60mg Inj IM ONE (10:15)
[2018-12-03] MEDS ORDERED: HYDROcodone/Acetamin 5/325 tab ORAL ONE (10:15)
--- NOTE | 2018-12-03 17:54 | Emergency Room Report ---
History of Present Illness General Chief Complaint: Lower Extremity Injury Source: Patient Present Illness HPI Patient presents to the emergency department today complaining of left knee pain. Patient has had chronic knee pain in the past take pain medications. Return to emergency department today requesting pain medications. Denies any recent trauma. Denies any fever nausea vomiting diarrhea chills. No other complaints were noted. Symptoms noted to be moderate to severe. No other modifying factors. No other associated signs and symptoms. No other complaints were noted. Allergies: Coded Allergies: SULFAMETHOXAZOLE (Verified Allergy, Unknown, Rash, 05/10/15) and itchiness on foot TRIMETHOPRIM (Verified Allergy, Unknown, Rash, 05/10/15) and itchiness on foot Patient History Past Medical History: HTN, asthma, COPD Past Surgical History: none Pertinent Family History: none Social History: Denies: smoking, alcohol use, drug use Last Menstrual Period: na Reviewed Nursing Documentation: PMH: Agreed; PSxH: Agreed Nursing Documentation-PMH Past Medical History: No History, Except For Hx Cardiac Problems: No - HYSTERECTOMY Hx Hypertension: Yes Hx Asthma: Yes Hx COPD: Yes Hx Diabetes: No Hx Cancer: No - Vocal cord polyp(s/p polypectomy in 01/2015) Hx Neurological Problems: No Hx Cerebrovascular Accident: No Review of Systems All Other Systems: negative except mentioned in HPI Physical Exam Vital Signs Date Time Temp Pulse Resp B/P (MAP) Pulse Ox O2 Delivery O2 Flow Rate FiO2 12/03/18 09:38 98.2 55 20 195/88 (123) 99 Room Air Sp02 EP Interpretation: reviewed, normal General Appearance: normal inspection, well appearing, no apparent distress, alert Head: atraumatic Eyes: bilateral eye normal inspection ENT: normal ENT inspection, hearing grossly normal, normal voice Neck: normal inspection, full range of motion, supple, no bony tend Respiratory: normal inspection, lungs clear, normal breath sounds, no respiratory distress, no retraction, no wheezing Cardiovascular #1: regular rate, rhythm, no edema Gastrointestinal: normal inspection, normal bowel sounds, non tender, soft, no guarding, no hernia Genitourinary: no CVA tenderness Musculoskeletal: normal inspection, back normal, decreased range of motion, tender - left knee Neurologic: normal inspection, alert, responsive, speech normal Psychiatric: normal inspection, judgement/insight normal, mood/affect normal Skin: no rash Procedures Splinting Splinting : Consent: Verbal Location: left knee Pre-Made Type: NASH wrap Pre-Proc Neuro Vasc Exam: normal Post-Proc Neuro Vasc Exam: normal Patient Tolerated: Well Complications: None Medical Decision Making Diagnostic Impression: Primary Impression: Knee pain, left ER Course Patient presents to the emergency department. Differential considerations include fracture dislocation versus strain. Given patient's presentation I felt the patient would benefit from pain patient's. Given that there is no recent trauma do not feel that any radiographic studies are indicated at this time. Patient was given prescription for pain medication and injection for pain medication. Nash bandage was placed. patient is advised to follow up with primary doctor in 2-3 days and return the emergency room for any worsening symptoms and as needed. Last Vital Signs Date Time Temp Pulse Resp B/P (MAP) Pulse Ox O2 Delivery O2 Flow Rate FiO2 12/03/18 10:11 98.3 62 18 172/82 100 Room Air Disposition: HOME, SELF-CARE Condition: Stable Scripts Hydrocodone Bit/Acetaminophen 5-325* (NORCO 5-325*) 1 Each Tablet 1 TAB ORAL Q6H PRN for For Pain, #20 TAB 0 Refills Prov: Jj Delong MD 12/03/18 Diclofenac Sod* (VOLTAREN*) 75 Mg Tablet. 75 MG ORAL BID, #30 TAB Prov: Jj Delong MD 12/03/18 Referrals: NON PHYSICIAN (PCP) Patient Instructions: Elastic Bandage and RICE, Arthritis, [id number], Cane Use, Knee Pain, [id number] Jj Delong MD Dec 03, 2018 17:54
== END 2018-12-03 10:12 | disposition home or self-care (01) ==
LOC: EMR 10:05
DX: M25.562 Pain in left knee (principal); I10 Essential (primary) hypertension; J44.9 Chronic obstructive pulmonary disease, unspecified; Z90.710 Acquired absence of both cervix and uterus; Z88.2 Allergy status to sulfonamides; Z88.1 Allergy status to other antibiotic agents
CPT/HCPCS: 96372; 99283

== ENCOUNTER 2019-01-17 12:21 | Emergency (ER) | payer MEDICARE, MEDICAID ==
[~2019-01-17] VITALS: Ht 163.8 cm; Wt 83.9 kg
[~2019-01-17 12:21] MED LIST changes: +DICLOFENAC SODI75 MG ORAL
[2019-01-17] MEDS ORDERED: LOSARTAN-HCTZ1 EAC1 ORAL (12:38)
[2019-01-17] MEDS ORDERED: BYSTOLIC2.5 MG ORAL (12:38)
[2019-01-17 12:45] VITALS: BP 162/80
--- NOTE | 2019-01-17 12:50 | NUR ---
ED Nurse Note: pt presents to ED c/o L knee pain that is chronic for her. pt reports feeling the pain for the last few years and has been in and out of the ED for the same problem. she reports 01/02 px and swelling of the L knee that radiates into her L thigh. there is decreased ROM and inability to bear weight. pt uses a cane to walk. Addendum: 01/17/19 at 1302 by RAMIRO pt denies taking anything for the pain [employer]
--- NOTE | 2019-01-17 13:17 | NUR ---
ED Nurse Note: ERMD at bedside
--- NOTE | 2019-01-17 13:43 | Emergency Room Report ---
History of Present Illness General Chief Complaint: Pain Source: Medical Record Present Illness HPI * 68-year-old female presents to the emergency department complaining of 10 out of 10 severity left knee pain that is been ongoing for several months. Patient reports recent increase in exacerbations. Patient states she did follow-up with her primary care provider regarding her last ED visit an abnormal finding however she states she was referred to an orthopedist to told her nothing was wrong and that she would just eventually need a knee replacement. Patient states that she did not have any additional imaging other than the x-ray imaging which she received here in the ER last year. She denies trauma or fall she denies erythema, warmth or instability of the joint. Patient does report visible swelling of the left knee. She reports walking exacerbates her pain. Denies night sweats or significant changes in weight. She denies any aggravating or relieving factors at this time. Allergies: Coded Allergies: SULFAMETHOXAZOLE (Verified Allergy, Unknown, Rash, 05/10/15) and itchiness on foot TRIMETHOPRIM (Verified Allergy, Unknown, Rash, 05/10/15) and itchiness on foot Patient History Past Medical History: see triage record Past Surgical History: none Pertinent Family History: none Now: No Reviewed Nursing Documentation: PMH: Agreed; PSxH: Agreed Nursing Documentation-PMH Past Medical History: No History, Except For Hx Cardiac Problems: No - HYSTERECTOMY Hx Hypertension: Yes Hx Asthma: Yes Hx COPD: Yes Hx Diabetes: No Hx Cancer: No - Vocal cord polyp(s/p polypectomy in 01/2015) Hx Neurological Problems: No Hx Cerebrovascular Accident: No Review of Systems All Other Systems: negative except mentioned in HPI Physical Exam Vital Signs Date Time Temp Pulse Resp B/P (MAP) Pulse Ox O2 Delivery O2 Flow Rate FiO2 01/17/19 12:34 97.9 82 18 162/80 (107) 96 Room Air Sp02 EP Interpretation: reviewed, normal General Appearance: no apparent distress, alert, GCS 15, non-toxic Head: normocephalic, atraumatic Eyes: bilateral eye normal inspection, bilateral eye PERRL ENT: hearing grossly normal, normal voice Neck: full range of motion Respiratory: lungs clear, normal breath sounds, speaking full sentences Cardiovascular #1: regular rate, rhythm, normal capillary refill Cardiovascular #2: 2+ dorsalis pedis (L) - Post. tib. Musculoskeletal: back normal, gait/station normal - compensated gait -favoring the left leg., normal range of motion, swelling - MEdial left knee swelling, neg. ant and post. drawer signs. No increased laxity. no erythema or warmth. no pulsatile palpable mass posteriorily. Neurologic: alert, oriented x3, responsive, motor strength/tone normal, sensory intact, speech normal, grossly normal Psychiatric: judgement/insight normal Skin: normal color Medical Decision Making PA Attestation Dr. Salazar Is my supervising Physician whom patient management has been discussed with. 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 Interpretation: no dislocation, no soft tissue swelling, no fractures, other - *abnormal bony lesion, slightly larger in size compared to previous imagin studies last year. Last Vital Signs Date Time Temp Pulse Resp B/P (MAP) Pulse Ox O2 Delivery O2 Flow Rate FiO2 01/17/19 12:45 97.9 18 162/80 96 Room Air 01/17/19 12:34 82 Disposition: HOME, SELF-CARE Condition: Stable Scripts Diclofenac Sodium (VOLTAREN) 100 Gm Gel..gram. 1 APPLIC TP QID, #100 GM Prov: Nunu Del Rosario 01/17/19 Hydrocodone Bit/Acetaminophen 5-325* (NORCO 5-325*) 1 Each Tablet 1 TAB ORAL Q6H PRN for For Pain, #20 TAB 0 Refills Prov: Nunu Del Rosario 01/17/19 Referrals: Orthopedic Urgent Care Patient Instructions: Knee Pain, [id number] Additional Instructions: IMPERATIVE THAT THIS PATIENT RECEIVE ADDITIONAL ORTHOPEDIC EVAL FOR POSSIBLE CHONDROSARCOMA. ABNORMAL X-RAY FINDING OF : EXPANSILE LESION OF THE LEFT FEMUR Follow up with an [employer] within 3-5 days, even if your symptoms have resolved. MRI/ CT and/or Bone Biopsy may be required at the discretion of your PCP or Ortho Specialist. Take medications as directed. --Please review list of primary care clinics, if you do not already have a primary care provider who can give you an Orthopedic Referral. One has been provided on the next page please check with your insurance to verify if in network. Return sooner to ED if new symptoms occur, or current symptoms become worse. Do not drink alcohol, drive, or operate heavy machinery while taking [place] as this may cause drowsiness. - Please note that this Emergency Department Report was dictated using [employer] operator technology software, occasionally this can lead to erroneous entry secondary to interpretation by the dictation equipment. Nunu Del Rosario Jan 17, 2019 13:43
[2019-01-17] MEDS ORDERED: VOLTAREN100 G1 TP (13:47)
[2019-01-17] MEDS ORDERED: NORCO 5-325 TA1 EACH ORAL (13:47)
[2019-01-17] MEDS ORDERED: Ketorolac 30mg Inj IM ONE (14:00)
--- NOTE | 2019-01-17 14:20 | Diagnostic Imaging Report ---
Indication: Left knee pain Technique: 3 views of the left knee Comparison: None Findings: No suprapatellar effusion. No acute fractures. No dislocations. There is degenerative change of the medial joint compartment, with irregularity of the joint surfaces and degenerative remodeling. A large presumed intra-articular loose body or synovial osteochondroma is seen posteriorly. There are degenerative changes of the patellofemoral joint noted. 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 There is solid periosteal thickening in the distal femur possibly reflecting old trauma Impression: No acute abnormality Degenerative changes as described Possible large posterior joint space synovial osteochondroma or loose body
== END 2019-01-17 14:05 | disposition home or self-care (01) ==
LOC: EMR 13:05
DX: M25.562 Pain in left knee (principal); M89.9 Disorder of bone, unspecified; Z90.710 Acquired absence of both cervix and uterus; I10 Essential (primary) hypertension; J44.9 Chronic obstructive pulmonary disease, unspecified; Z88.2 Allergy status to sulfonamides; Z88.1 Allergy status to other antibiotic agents
CPT/HCPCS: 73562; 96372; 99283; J1885

== ENCOUNTER 2019-08-11 08:07 | Emergency (ER) | payer MEDICARE, MEDICAID ==
[~2019-08-11] VITALS: Ht 162.6 cm; Wt 88.5 kg
[~2019-08-11 08:07] MED LIST changes: +BYSTOLIC2.5 MG ORAL; +LOSARTAN-HCTZ1 EAC1 ORAL; +LOSARTAN-HCTZ1 EACH ORAL; +PREDNISONE20 MG ORAL; +TRAMADOL HCL50 MG ORAL; +VITAMIN D32000 UNI3 PO; +VOLTAREN100 G1 TP
--- NOTE | 2019-08-11 08:28 | NUR ---
ED Nurse Note: Pt walked into ED w/ c/o rash under R breast for 2 weeks. Pt is alert and orientedx4, ambulatory. She jimenes itchiness but no pain. She had a mammogram a few months ago and was concerned about possible breast cancer.
[2019-08-11 08:30] VITALS: BP 150/92
--- NOTE | 2019-08-11 09:02 | Emergency Room Report ---
History of Present Illness General Chief Complaint: Skin Rash/Abscess Source: Patient, Medical Record Present Illness HPI This patient states that over the past 3 weeks she has noticed a rash on the inferior portion of her right breast. She states the rash is very itchy. She states that she does try not to scratch the rash. She has been using rubbing alcohol on the skin there. She states that her last mammogram done at the end of last year, initially, was concerning for changes in that right breast. She went in for repeat mammogram/imaging and then was cleared from the thought that that was breast cancer. She states she was told to follow-up in 1 year for repeat imaging. She denies recent illness. She denies fever or chills. She denies nausea or vomiting. When I inquired about a previous visit where she had been found to have a sclerotic lesion on her knee x-ray, and she was instructed to follow-up for possible tumor, she states that she did get this further evaluated and was cleared from it being a malignancy. She has no other complaints. Allergies: Coded Allergies: SULFAMETHOXAZOLE (Verified Allergy, Unknown, Rash, 05/10/15) and itchiness on foot TRIMETHOPRIM (Verified Allergy, Unknown, Rash, 05/10/15) and itchiness on foot COVID-19 Screening Contact w/high risk pt: No Recent Travel to affected area: No Experienced COVID-19 symptoms?: No COVID-19 Testing performed MANAGER SWITCH: No Patient History Past Medical History: see triage record, HTN, asthma, COPD Social History: Denies: smoking, alcohol use, drug use Reviewed Nursing Documentation: PMH: Agreed; PSxH: Agreed Nursing Documentation-PMH Past Medical History: No History, Except For Hx Cardiac Problems: No - HYSTERECTOMY Hx Hypertension: Yes Hx Asthma: Yes Hx COPD: Yes Hx Diabetes: No Hx Cancer: No - Vocal cord polyp(s/p polypectomy in 01/2015) Hx Neurological Problems: No Hx Cerebrovascular Accident: No Review of Systems All Other Systems: negative except mentioned in HPI Physical Exam Vital Signs Date Time Temp Pulse Resp B/P (MAP) Pulse Ox O2 Delivery O2 Flow Rate FiO2 08/11/19 08:16 98.8 67 20 154/94 (114) 95 Room Air Sp02 EP Interpretation: reviewed, normal General Appearance: no apparent distress, alert, GCS 15, non-toxic Head: normocephalic, atraumatic Eyes: bilateral eye normal inspection, bilateral eye PERRL ENT: hearing grossly normal, no angioedema, normal voice Neck: full range of motion Respiratory: no respiratory distress, no retraction, no accessory muscle use, speaking full sentences Rectal: deferred Musculoskeletal: back normal, normal range of motion, other - Antalgic gait Neurologic: alert, motor strength/tone normal, oriented x3, sensory intact, responsive, speech normal Psychiatric: judgement/insight normal, memory normal, mood/affect normal, no suicidal/homicidal ideation Skin: other - Erythematous oval/irregular lesions 6cmx2 region at the inferior fold of the R. breast Medical Decision Making Diagnostic Impression: Primary Impression: Dermatitis Additional Impression: Inflammatory dermatosis ER Course This patient has a concerning region at the inferior fold of her right breast. I am concerned that this is early inflammatory breast cancer. This is especially concerning given the previous mammogram that required repeating. Patient also has a lesion that was previously found on her left knee x-ray that could possibly be findings of metastasis. Although, this was further evaluated and determined to be an osteochondroma according to the patient. Regardless, this patient needs an urgent biopsy of the region under the right breast. The patient was instructed that she should see her primary care physician immediately. The patient states that her insurance company is associated with a specific clinic at [facility] and she will go there immediately upon leaving this facility. I did impress upon her the urgency in this matter. She indicated understanding and intention to follow-up immediately. I will go ahead and place the patient on a topical antifungal, however, I do not believe that this is fungal in etiology. The patient is given very close return precautions and follow-up instructions. Last Vital Signs Date Time Temp Pulse Resp B/P (MAP) Pulse Ox O2 Delivery O2 Flow Rate FiO2 08/11/19 08:30 98.8 73 21 150/92 97 Room Air Disposition: HOME, SELF-CARE Condition: Stable Referrals: NON PHYSICIAN (PCP) Sobia Espinoza DO August 11, 2019 09:02
[2019-08-11] MEDS ORDERED: NYSTATIN15 GM TOPIC (09:05)
[2019-08-11] MEDS ORDERED: NYSTATIN1000000 UN MC (09:05)
[2019-08-11 09:11] VITALS: BP 152/89
--- NOTE | 2019-08-11 09:11 | NUR ---
ER DISCHARGE NOTE: Patient is cleared to be discharged per ERMD, pt is aox4, on room air, with stable vital signs as documented. pt was given dc and prescription instructions, pt was able to verbalize understanding, pt id band removed. pt is able to ambulate with steady gait using cane. pt took all belongings.
== END 2019-08-11 09:11 | disposition home or self-care (01) ==
LOC: EMR 08:28
DX: L30.9 Dermatitis, unspecified (principal); L98.8 Other specified disorders of the skin and subcutaneous tissue; J44.9 Chronic obstructive pulmonary disease, unspecified; I10 Essential (primary) hypertension; Z90.710 Acquired absence of both cervix and uterus; Z88.2 Allergy status to sulfonamides
CPT/HCPCS: 99282